=== PATIENT | female | born 1945 | race Caucasian/White ===

== ENCOUNTER → 2016-12-20 | Outpatient (CLI) | payer OTHER, MEDICAID ==
[~2016-12-20] MED LIST: NS 100 ML IV 100 ML IV ONE
[2016-12-20 08:57] LABS: CREATININE 0.96 mg/dL (0.55-1.02)
--- NOTE | 2016-12-20 10:57 | VAS ---
HISTORY: Swollen legs. Study: Bilateral lower extremity ultrasound. Comparison: None. TECHNIQUE: Multiple lares scale and color flow Doppler images of the deep venous system were obtaine d of the right and left lower extremity. FINDINGS: The deep venous system of the right and left lower extremities were evaluated from the level of the common femoral vein through the popliteal vein. Normal color flow and augmentation can be observed. In addition, normal compression is seen throughout the deep venous system. IMPRESSION: 1. Negative for DVT. Reported By:
--- NOTE | 2016-12-20 11:20 | CT ---
HISTORY: TIA, swelling legs, hypertension. Study: CT brain with and without contrast Comparison: None. Technique: Multiple axial images of the brain were obtained from the skull base to the vertex with/without the administration of IV contrast. CTA images were performed of the brain. Dose reduction techniques inc luding Automated Exposure Control (AEC) and adjustment of mA and kV were utilized. Findings: Mild age related cortical atrophy and chronic small vessel ischemic changes. No acute intraparenchym al hemorrhage or mass can be identified. No extra-axial fluid collections are seen. No alteration in the attenuation of the brain parenchyma can be identified to suggest acute or subacute ischemic c hange. The ventricular system is symmetric and nondilated. The visualized paranasal sinuses and mas toid air cells are clear. The osseous structures are intact. No areas of abnormal contrast enhancement. 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 There is a 2 mm outpo uching along the right posterior cerebral artery (series 11, image 13). This is concerning for a sma ll aneurysm. Remaining [place] of [place] is unremarkable. Remaining vascular structures demonstrate n ormal course and caliber without focal stenosis, aneurysmal dilatation, or dissection. No significan t atherosclerotic changes. IMPRESSION: 1. No acute intracranial pathology. However, if clinically concerned for acute ischemia/infarction MRI brain is more sensitive. 2. Question of a 2 mm small aneurysm along the right posterior cerebral artery as above. Recommend M RA brain for further characterization. Reported By:
--- NOTE | 2016-12-20 11:56 | VAS ---
HISTORY: TIA Study: Carotid ultrasound Comparison: None Technique: Multiple lares scale and color flow Doppler images of the right and left carotid arterial system were obtained. The vertebral arterial system was evaluated as well. Findings: The peak systolic velocity of the right ICA is 54 cm/sec. The peak systolic velocity of the left IC A is 61 cm/sec. The ICA/CCA ratio on the right is 1.1. The ICA/CCA ratio on the left is 1.7. Antegra de vertebral flow was noted on the right. The left vertebral artery was not visualized. Correlation with CTA may be helpful. IMPRESSION: 1. No hemodynamically significant carotid stenosis is appreciated. 2. Non visualization of the left vertebral artery. Reported By:
== END | disposition home or self-care (01) | DRG 951 ==
LOC: RAD 08:17
PROVIDERS: ATTEND Internal Medicine Cardiovascular Disease
DX: Z86.73 Personal history of transient ischemic attack (TIA), and cerebral infarction without residual deficits (principal); M79.89 Other specified soft tissue disorders; M48.8X9 Other specified spondylopathies, site unspecified
CPT/HCPCS: 36415; 70470; 82565; 84520; 93880; 93970; A4222

== ENCOUNTER → 2017-07-17 | Outpatient (CLI) | payer OTHER, MEDICAID ==
[~2017-07-17] MED LIST changes: +LEXISCAN IV ONE; -NS 100 ML IV 100 ML IV ONE
== END ==
LOC: RAD 07:53
PROVIDERS: ATTEND Physician Assistant
DX: R07.89 Other chest pain (principal)
CPT/HCPCS: 78452; 93017; A4222; A9502; J2785

== ENCOUNTER → 2017-07-20 | Outpatient (CLI) | payer OTHER, MEDICAID | LOC: RAD 13:25 | PROVIDERS: ATTEND Physician Assistant | DX: R07.89 Other chest pain (principal); R11.0 Nausea; R06.02 Shortness of breath | CPT/HCPCS: 93306 ==

== ENCOUNTER 2019-01-02 13:00 | Observation (INO) ==
--- NOTE | 2019-01-02 13:49 | DR.GENAD ---
HPI Time Seen Time Seen by Provider: 01/02/19 13:49 PCP Primary Care Physician: LEANDRO HPI Comment HPI Comment: PATIENT IE 73YR OLD FEMALE IN ED WITH ELEVATED BP, BRADYCARDIA AND POUNDING OF HEART ON AND OFF FOR 3 DAYS. WORSE TODAY. Complaint/Symptoms Chief Complaint Doctors Comments: ELEVATED BLOOD PRESSURE, DECRASE HEART RATE AND HEART POUNDING TIMES 3 DAYS. Chief Complaint:: PT C/O HER BLOOD PRESSURE BEING UP AND HER HEART RATE HAS BEEN BOUNCING ALL OVER THE PLACE. DROPPING DOWN IN THE 40'S AND BACK UP TO THE 5-'S. PT CALLED BUSINESS PROJECT MANAGER'S OFFICE AND WAS TOLD TO COME THE ER. Nurses notes reviewed Nurses Notes Review: Yes Source History Provided: Patient Mode of Arrival Mode of Arrival: Ambulatory Timing Onset of Chief Complaint: 12/30/18 Came on: Suddenly Duration Duration: Intermittent Duration: Days Severity Severity: Moderate Modifying Factors Worsens:: ACTIVITY Improves:: REST. Associated Signs and Symptoms Associated Signs and Symptoms: WEAKNESS. Other History Other History: CAD AND HYPERTENSION. PMH PMH Past Medical History: No Past Medical History: Coronary Artery Disease and Hypothyroidism Past Medical History Comment: A-FIB Past Surgical History: Yes Surgical History: Cholecystectomy and Hysterectomy Past Surgical History Comment: ADHESIONS REMOVAL, EGD, COLONOSCOPY Family History History of Family Medical Conditions: No Social History Does patient currently use any type of tobacco product: No Have you used tobacco products in the last 12 months: Yes Type of Tobacco Use: Cigarettes Does any household member use tobacco: Yes Alcohol Use: None Do you use any recreational Drugs:: No Lives With: Family Lives Where: Home infectious screening In the last 2 months have you had wt loss of >10#?: NO Have you had fever, night sweats or hemotysis?: No Have you traveled outside the country in the last 6 months?: No Isolation: Standard ROS Review of Systems Constitutional: See HPI, Weakness and Fatigue; negative Fever Eyes: No Symptoms Reported and See HPI; negative Eye Pain, Blurred Vision, D ischarge and Photophobia ENTM: No Symptoms Reported and See HPI; negative Ear Pain, Nose Discharge, Nose Congestion and Throat Pain Respiratoy: See HPI and Short of Breath; negative Productive Cough and Wheezing Cardiovascular: See HPI, Chest Pain and Edema; negative Syncope Gastrointestinal/Abdominal: No Symptoms Reported and See HPI; negative Abdominal Pain, Constipation, Diarrhea and Vomiting Genitourinary: No Symptoms Reported and See HPI; negative Dysuria, Frequency and Hematuria Neurological: No Symptoms Reported, See HPI, Weakness and Dizziness; negative Headache Musculoskeletal: No Symptoms Reported and See HPI; negative Back Pain Integumentary: No Symptoms Reported and See HPI Hematologic/Lymphatic: No Symptoms Reported and See HPI; negative Easy Bruising and Swollen Glands Endocrine: No Symptoms Reported and See HPI; negative Increased Thirst, Increased Urine and Decreased Appetite Psychiatric: No Symptoms Reported and See HPI All Other Systems: Reviewed and Negative PE Vital Signs Vitals: Temperature 98.4 F Pulse Rate [Right Brachial] 76 Pulse Rate [Apical] 60 Pulse Rate 66 Respiratory Rate 20 Blood Pressure [Right Arm] 139/75 Blood Pressure [Left Arm] 117/71 Blood Pressure 180/74 O2 Sat by Pulse Oximetry 96 General Limitations: No Limitations General Appearance: Alert and In No Apparent Distress Head Head Exam: Normal Inspection and Atraumatic Eyes Eye exam: Normal Appearance, PERRL and EOMI; negative Scleral Icterus and Conjunctival Injection ENT ENT Exam: Normal Exam, Normal Oropharynx, Normal External Ear Exam and TM's Normal Bilaterally External Ear Exam: Normal External Inspection; negative Mastoid Tenderness, Pain with Movement and External Tenderness TM/Canal Exam: Bilateral: Normal Nose Exam: Normal Nose Exam; negative Sinus Tenderness, Nasal Deviation and Septal Hematoma Mouth Exam: Normal Inspection; negative Lip Swelling and Tongue Swelling Throat Exam: Normal Inspection; negative Tonsillar Erythema, Tonsillomegaly and Tonsillar Exudate Neck Neck Exam: Normal Inspection and Trachea Midline; negative Tenderness and Lymphadenopathy Chest Chest Inspection: Normal Inspection and Symmetric Chest Wall Rise; negative Tenderness Respiratory Respiratory Exam: Normal Lung Sounds Bilat; negative Accessory Muscle Use, Chest Wall Tenderness and Respiratory Distress Respiratory Exam: Bilateral: Rhonchi and Lower: Rhonchi Cardiovascular Cardiovascular Exam: Regular Rate, Bradycardia and Normal Heart Sounds; negative Systolic Murmur and Diastolic Murmur Abdominal Exam Abdominal Exam: Normal Inspection, Normal Bowel Sounds and Soft; negative Tenderness Extremities Extremities Exam: Normal Inspection and Normal Capillary Refill; negative Tenderness, Edema and Calf Tenderness Back Back Exam: Normal Inspection; negative Tenderness, Paraspinal Tenderness and Vertebral Tenderness Neurologic Neurological Exam: Alert, Oriented X3 and CN II-XII Intact; negative Motor Sensory Deficit Psychiatric Psychiatric Exam: Normal Affect and Normal Mood Skin Skin Exam: Warm, Dry, Intact and Normal Color MDM Differential Diagnosis Differential Diagnosis: A FIN/FLUTTER, NM, PNEUMONIA, ARRHYTHMIA, DEHYDRATION, ELECTRLYTE ABNORMALI COURSE Treatment Treatment: SEE ORDERS. Education/Counseling Education/Counseling: Patient Educated On: Diagnosis ROR Labs Reviewed Laboratory Results Reviewed?: Yes Result Diagrams: 01/04/19 05:17 01/04/19 05:17 Laboratory: WBC 6.0 X10^3/uL (3.6-10.0) 01/04/19 05:17 RBC 4.65 X10^6/uL (3.5-5.4) 01/04/19 05:17 Hgb 13.5 g/dL (12.0-16.0) 01/04/19 05:17 Hct 41.1 % (36.0-47.0) 01/04/19 05:17 MCV 88.3 fL (80.0-100.0) 01/04/19 05:17 MCH 29.1 pg (27.0-34.0) 01/04/19 05:17 MCHC 33.0 g/dL (33.0-35.0) 01/04/19 05:17 RDW 14.5 % (11.6-16.5) 01/04/19 05:17 Plt Count 176 X10^3/uL (150.0-450.0) 01/04/19 05:17 MPV 9.4 fL (7.4-11.0) 01/04/19 05:17 Neut % (Auto) 51.1 % (42.0-75.0) 01/04/19 05:17 Lymph % (Auto) 37.7 % (21.0-51.0) 01/04/19 05:17 Allen % (Auto) 9.1 % (0.0-13.0) 01/04/19 05:17 Eos % (Auto) 1.6 % (0.9-2.9) 01/04/19 05:17 Baso % (Auto) 0.5 % (0.2-1.0) 01/04/19 05:17 Neut # (Auto) 3.1 x10^3/uL (2.2-4.8) 01/04/19 05:17 Lymph # (Auto) 2.3 X10^3/uL (1.3-2.9) 01/04/19 05:17 Allen # (Auto) 0.5 x10^3/uL (0.3-0.8) 01/04/19 05:17 Eos # (Auto) 0.1 x10^3/uL (0.0-0.2) 01/04/19 05:17 Baso # (Auto) 0.0 X10^3/uL (0.0-0.1) 01/04/19 05:17 Absolute Nucleated RBC 0.1 /100WBC 01/04/19 05:17 INR Target Range - 01/03/19 05:03 INR 1.08 (0.8-1.3) 01/03/19 05:03 APTT 31.5 SECONDS (22.9-36.5) 01/03/19 05:03 PTT Comment - 01/03/19 05:03 Sodium 142 mmol/L (136-145) 01/04/19 05:17 Corrected Sodium TNP 01/04/19 05:17 Potassium 4.0 mmol/L (3.5-5.1) 01/04/19 05:17 Chloride 106 mmol/L (98-107) 01/04/19 05:17 Carbon Dioxide 30.3 mmol/L (21-32) 01/04/19 05:17 BUN 13 mg/dL (7-18) 01/04/19 05:17 Creatinine 0.78 mg/dL (0.55-1.02) 01/04/19 05:17 Est GFR (MDRD) Af Amer > 60 (>60) 01/04/19 05:17 Est GFR (MDRD) Non-Af > 60 (>60) 01/04/19 05:17 Glucose 91 mg/dL (65-99) 01/04/19 05:17 Calcium 9.1 mg/dL (8.5-10.1) 01/04/19 05:17 Corrected Calcium 9.7 mg/dL (8.5-10.1) 01/04/19 05:17 Magnesium 2.0 mg/dL (1.7-2.9) 01/03/19 05:03 Total Bilirubin 0.50 mg/dL (0.2-1.0) 01/04/19 05:17 AST 17 Units/L (15-37) 01/04/19 05:17 ALT 26 Units/L (12-78) 01/04/19 05:17 Alkaline Phosphatase 123 Units/L (46-116) H 01/04/19 05:17 Creatine Kinase 77 Units/L (26-192) 01/03/19 05:03 CK-MB (CK-2) < 1.0 ng/mL (0-4.0) 01/03/19 05:03 CK/CKMB % Calc 1.3 % (<4) 01/03/19 05:03 Troponin I < 0.02 ng/mL (0-1.5) 01/03/19 05:03 Total Protein 6.6 g/dL (6.4-8.2) 01/04/19 05:17 Albumin 3.2 g/dL (3.4-5.0) L 01/04/19 05:17 Globulin 3.4 g/dL (2.5-4.5) 01/04/19 05:17 Albumin/Globulin Ratio 0.9 Ratio (1.1-2.1) L 01/04/19 05:17 Triglycerides 65 mg/dL (0-150) 01/03/19 05:03 Cholesterol 186 mg/dL (0-200) 01/03/19 05:03 LDL Cholesterol, Calc 109 mg/dL (0-100) H 01/03/19 05:03 HDL Cholesterol 64 mg/dL (40-60) H 01/03/19 05:03 Cholesterol/HDL Ratio 2.9 (0.0-5.0) 01/03/19 05:03 TSH 3rd Generation 1.161 uIU/mL (0.358-3.74) 01/02/19 14:14 Specimen Type Clean catch urine 01/02/19 16:13 Urine Color Yellow (YELLOW) 01/02/19 16:13 Urine Appearance Clear (CLEAR) 01/02/19 16:13 Urine pH 5.0 (5.0 - 8.0) 01/02/19 16:13 Ur Specific [place] 1.020 (1.000-1.030) 01/02/19 16:13 Urine Protein Negative (NEGATIVE) 01/02/19 16:13 Urine Glucose (UA) Negative (NEGATIVE) 01/02/19 16:13 Urine Ketones Negative (NEGATIVE) 01/02/19 16:13 Urine Occult Blood 1+ (NEGATIVE) 01/02/19 16:13 Urine Nitrite Negative (NEGATIVE) 01/02/19 16:13 Urine Bilirubin Negative (NEGATIVE) 01/02/19 16:13 Urine Urobilinogen Normal (NORMAL) 01/02/19 16:13 Ur Leukocyte Esterase 1+ (NEGATIVE) 01/02/19 16:13 Urine RBC 0-2 /HPF (NONE SEEN) 01/02/19 16:13 Urine WBC 0-2 /HPF (NONE SEEN) 01/02/19 16:13 Ur Squamous Epith Cells Few /HPF (NEGATIVE) 01/02/19 16:13 Urine Bacteria Negative /HPF (NEGATIVE) 01/02/19 16:13 Ur Culture Indicated? No/not indicated 01/02/19 16:13 XRAY XRAY Interpreted by: Radiologist XRAY Findings: REPORT NOTED ABD DISCUSS WITH PATIENT. EKG Rate: 57 Berkley: Normal Rhythm: SB Block: None Hypertrophy: None ST: Normal Opioid Opioid Risk Tool Age (Tanner box if 16-45): No Total: 0 Total Score Risk Category: Low Risk Copyright: [facility] predicting aberrant behaviors Diagnosis Discharge Problem: Hypertension, Near syncope, Arrhythmia Instructions Instructions: Steps to Quit Smoking, [id number] Health Risks of Smoking Smoking Tobacco Information, Adult Near-Syncope, [id number] Hypertension, [id number] Managing Your Hypertension
[2019-01-02 14:22] LABS: BASOPHILS % (AUTO) 0.7 % (0.2-1.0); EOSINOPHILS # (AUTO) 0.1 x10^3/uL (0.0-0.2); EOSINOPHILS % (AUTO) 1.8 % (0.9-2.9); HEMATOCRIT 41.7 % (36.0-47.0); LYMPHOCYTES # (AUTO) 1.5 X10^3/uL (1.3-2.9); LYMPHOCYTES % (AUTO) 24.2 % (21.0-51.0); MEAN CORPUSCULAR HEMOGLOBIN 29.3 pg (27.0-34.0); MEAN CORPUSCULAR HGB CONC 33.6 g/dL (33.0-35.0); MEAN CORPUSCULAR VOLUME 87.4 fL (80.0-100.0); MEAN PLATELET VOLUME 8.5 fL (7.4-11.0); MONOCYTES # (AUTO) 0.5 x10^3/uL (0.3-0.8); MONOCYTES % (AUTO) 8.3 % (0.0-13.0); NEUTROPHILS # (AUTO) 4.1 x10^3/uL (2.2-4.8); PLATELET COUNT 175 X10^3/uL (150.0-450.0); RED BLOOD COUNT 4.77 X10^6/uL (3.5-5.4); RED CELL DISTRIBUTION WIDTH 14.5 % (11.6-16.5); WHITE BLOOD COUNT 6.3 X10^3/uL (3.6-10.0)
[2019-01-02 14:41] LABS: BLOOD UREA NITROGEN 19 mg/dL (7-18); CALCIUM 8.9 mg/dL (8.5-10.1); CHLORIDE 106 mmol/L (98-107); CREATININE 0.99 mg/dL (0.55-1.02); SODIUM 143 mmol/L (136-145); TROPONIN I < 0.02 ng/mL (0-1.5); eGFR NON BLACK RACES 59 (>60)
[2019-01-02 14:46] LABS: ALANINE AMINOTRANSFERASE 21 Units/L (12-78); ALBUMIN 3.3 g/dL (3.4-5.0); ALKALINE PHOSPHATASE 121 Units/L (46-116); ASPARTATE AMINO TRANSFERASE 16 Units/L (15-37); CKMB % 1.2 % (<4); COR CA(FOR HYPOALB) 9.5 mg/dL (8.5-10.1); CREATINE KINASE 83 Units/L (26-192); TOTAL PROTEIN 6.8 g/dL (6.4-8.2)
--- NOTE | 2019-01-02 15:29 | RAD ---
History: Chest pain and shortness of breath Study: Portable AP chest Comparison: None Findings: The lungs are clear and the heart and mediastinum are unremarkable. There is no edema or effusion. No significant bony abnormality is demonstrated. Impression: No evidence for active cardiopulmonary disease Reported By:
[2019-01-02 16:17] LABS: APPEARANCE,URINE CLEAR (CLEAR); BILIRUBIN,URINE NEGATIVE (NEGATIVE); BLOOD/HEMOGLOBIN,URINE 1+ (NEGATIVE); COLOR,URINE YELLOW (YELLOW); GLUCOSE, URINE NEGATIVE (NEGATIVE); KETONES,URINE NEGATIVE (NEGATIVE); LEUKOCYTE ESTERASE ,URINE 1+ (NEGATIVE); NITRITES,URINE NEGATIVE (NEGATIVE); PROTEIN,URINE NEGATIVE (NEGATIVE); UROBILINOGEN,URINE NORMAL (NORMAL)
[2019-01-02 16:22] LABS: BACTERIA,URINE NEGATIVE /HPF (NEGATIVE); RBC,URINE 0-2 /HPF (NONE SEEN); SQUAMOUS EPITHELIAL CELL,UR FEW /HPF (NEGATIVE)
[2019-01-02] MEDS: CELEXA PO SCH (21:00)
[2019-01-02] MEDS: ELIQUIS PO SCH (21:00)
[2019-01-02 23:02] LABS: CKMB % 1.2 % (<4); CREATINE KINASE 84 Units/L (26-192); CREATINE KINASE MB < 1.0 ng/mL (0-4.0); TROPONIN I < 0.02 ng/mL (0-1.5)
[2019-01-03 05:15] LABS: BASOPHILS % (AUTO) 0.4 % (0.2-1.0); EOSINOPHILS # (AUTO) 0.1 x10^3/uL (0.0-0.2); EOSINOPHILS % (AUTO) 1.8 % (0.9-2.9); HEMOGLOBIN 13.3 g/dL (12.0-16.0); LYMPHOCYTES # (AUTO) 1.8 X10^3/uL (1.3-2.9); LYMPHOCYTES % (AUTO) 33.9 % (21.0-51.0); MEAN CORPUSCULAR HEMOGLOBIN 29.2 pg (27.0-34.0); MEAN CORPUSCULAR HGB CONC 33.2 g/dL (33.0-35.0); MEAN CORPUSCULAR VOLUME 87.8 fL (80.0-100.0); MONOCYTES # (AUTO) 0.5 x10^3/uL (0.3-0.8); MONOCYTES % (AUTO) 8.4 % (0.0-13.0); NEUTROPHILS % (AUTO) 55.5 % (42.0-75.0); PLATELET COUNT 150 X10^3/uL (150.0-450.0); RED BLOOD COUNT 4.56 X10^6/uL (3.5-5.4); RED CELL DISTRIBUTION WIDTH 14.6 % (11.6-16.5); WHITE BLOOD COUNT 5.4 X10^3/uL (3.6-10.0)
[2019-01-03 05:35] LABS: ALANINE AMINOTRANSFERASE 20 Units/L (12-78); ALKALINE PHOSPHATASE 111 Units/L (46-116); ASPARTATE AMINO TRANSFERASE 18 Units/L (15-37); BLOOD UREA NITROGEN 16 mg/dL (7-18); CALCIUM 8.8 mg/dL (8.5-10.1); CARBON DIOXIDE 29.6 mmol/L (21-32); CHLORIDE 107 mmol/L (98-107); CHOL/HDL RATIO 2.9 (0.0-5.0); CHOLESTEROL 186 mg/dL (0-200); COR CA(FOR HYPOALB) 9.6 mg/dL (8.5-10.1); CREATININE 0.87 mg/dL (0.55-1.02); HDL CHOLESTEROL 64 mg/dL (40-60); SODIUM 143 mmol/L (136-145); TOTAL PROTEIN 6.2 g/dL (6.4-8.2); TRIGLYCERIDES 65 mg/dL (0-150); eGFR NON BLACK RACES > 60 (>60)
[2019-01-03 06:12] LABS: CKMB % 1.3 % (<4); CREATINE KINASE 77 Units/L (26-192); CREATINE KINASE MB < 1.0 ng/mL (0-4.0); TROPONIN I < 0.02 ng/mL (0-1.5)
[2019-01-03] MEDS: NS 1000 ML 1,000 ML IV SCH ×2 (06:37→20:00)
[2019-01-03 07:57] VITALS: BMI 37.3
[2019-01-03] MEDS: CELEXA PO SCH ×2 (08:39→21:54)
[2019-01-03] MEDS: ELIQUIS PO SCH ×2 (08:40→21:54)
[2019-01-03] MEDS ORDERED: XOPENEX 1.25 MG/3 ML NEBULE NEB PRN (12:00)
--- NOTE | 2019-01-03 12:35 | CT ---
History: Altered mental status Study: CT head without contrast. Sagittal and coronal reformations were provided. Post reduction techniques were utilized. Graft findings: The ventricles and sulci are normal in size and configuration without mass effect. There is no intracranial hemorrhage or mass or edema. There is no subdural collection of fluid. The calvarium is intact. The paranasal sinuses are clear. There is very mild periventricular white matter patchy low attenuation. Impression: No evidence for acute intracranial disease Reported By:
--- NOTE | 2019-01-03 13:10 | CT ---
History: Chest pain and shortness of breath Study: CT of the chest with IV contrast. Sagittal and coronal reformations and axial MIPS were provided. Dose reduction techniques were utilized. Comparison: Findings: The right lobe of the thyroid gland is enlarged up to 2.74 cm transverse width extending inferiorly into the anterior superior mediastinum. There is mild effacement of the trachea. The lungs are clear. There is no edema or effusion or pneumothorax. There is no these tidal or hilar adenopathy. No embolus is suggested. The aorta is unremarkable. The visualized upper abdomen suggest enlargement of the spleen, incompletely visualized. The gallbladder surgically absent. No significant bony abnormality is demonstrated. Impression: 1. Right thyroid goiter deviating trachea toward the left and extending into the anterior superior mediastinum 2. Probable splenomegaly 3. Clear lungs Reported By:
--- NOTE | 2019-01-03 13:32 | CT ---
History: Difficulty swallowing and right neck pain Study: CT of the neck with IV contrast. Sagittal and coronal reformations were provided. Dose reduction techniques were utilized. Findings: The thyroid is enlarged. The right lobe measures at least 6 cm in sagittal length and 2.5 cm transverse diameter and 2.8 cm AP diameter with mixed attenuation and multiple low-attenuation thyroid nodules. The left lobe has low attenuation nodules and measures up to 3.2 cm sagittal length. There is mild deviation of the lower cervical trachea from right to left. Graph no cervical or jugular or submandibular adenopathy is demonstrated. Prevertebral soft tissues and retropharyngeal soft tissues are unremarkable. There are calcified plaques in both carotid bifurcations and internal carotid arteries without significant stenosis demonstrated. Impression: Multinodular goiter, with enlarged right lobe of the thyroid gland Reported By:
[2019-01-04 05:37] LABS: BASOPHILS % (AUTO) 0.5 % (0.2-1.0); EOSINOPHILS # (AUTO) 0.1 x10^3/uL (0.0-0.2); EOSINOPHILS % (AUTO) 1.6 % (0.9-2.9); HEMATOCRIT 41.1 % (36.0-47.0); HEMOGLOBIN 13.5 g/dL (12.0-16.0); LYMPHOCYTES # (AUTO) 2.3 X10^3/uL (1.3-2.9); LYMPHOCYTES % (AUTO) 37.7 % (21.0-51.0); MEAN CORPUSCULAR HEMOGLOBIN 29.1 pg (27.0-34.0); MEAN CORPUSCULAR VOLUME 88.3 fL (80.0-100.0); MEAN PLATELET VOLUME 9.4 fL (7.4-11.0); MONOCYTES # (AUTO) 0.5 x10^3/uL (0.3-0.8); MONOCYTES % (AUTO) 9.1 % (0.0-13.0); NEUTROPHILS # (AUTO) 3.1 x10^3/uL (2.2-4.8); NEUTROPHILS % (AUTO) 51.1 % (42.0-75.0); PLATELET COUNT 176 X10^3/uL (150.0-450.0); RED BLOOD COUNT 4.65 X10^6/uL (3.5-5.4); RED CELL DISTRIBUTION WIDTH 14.5 % (11.6-16.5)
[2019-01-04 05:52] LABS: ALANINE AMINOTRANSFERASE 26 Units/L (12-78); ALBUMIN 3.2 g/dL (3.4-5.0); ALKALINE PHOSPHATASE 123 Units/L (46-116); ASPARTATE AMINO TRANSFERASE 17 Units/L (15-37); BLOOD UREA NITROGEN 13 mg/dL (7-18); CALCIUM 9.1 mg/dL (8.5-10.1); CARBON DIOXIDE 30.3 mmol/L (21-32); CHLORIDE 106 mmol/L (98-107); COR CA(FOR HYPOALB) 9.7 mg/dL (8.5-10.1); CREATININE 0.78 mg/dL (0.55-1.02); SODIUM 142 mmol/L (136-145); TOTAL PROTEIN 6.6 g/dL (6.4-8.2); eGFR NON BLACK RACES > 60 (>60)
[2019-01-04] MEDS: ELIQUIS PO SCH (08:05)
[2019-01-04] MEDS: CELEXA PO SCH (08:05)
[2019-01-04 09:28] VITALS: BP 117/71
--- NOTE | 2019-01-21 08:21 | DR.H&P ---
H&P - History & Physical for Day of: H&P Date: 01/02/19 - Chief Complaint Chief Complaint: increased blood pressure, erratic heart rate, near syncope - History of Present Illness History of Present Illness: IS A 73 YEAR OLD WHITE FEMALE WHO PRESENTED TO THE ER WITH COMPLAINTS OF ELEVATED BLOOD PRESSURE AND ERRATIC HEART RATE X 3 DAYS. SHE REPORTS NEARLY PASSING OUT AT HOME. PATIENT REPORTS THAT SHE WAS INSTRUCTED BY HER CUTTING MACHINE TENDER TO COME TO THE ER. ON ARRIVAL TO THE ER, VITALS WERE 98.5-62-20-97%-180/74. LABS WERE OBTAINED. ABNORMAL LAB VALUES INCLUDE THE FOLLOWING: BUN 19, GLUCOSE 102, ALK PHOS 121, ALBUMIN 3.3. CARDIAC E NZYMES WITHIN NORMAL LIMITS. URINALYSIS UNREMARKABLE. AN EKG WAS OBTAINED AND REVEALED: SINUS RHYTHM WITH HR 57. A CHEST XRAY WAS OBTAINED AND REVEALED: NO EVIDENCE FOR ACTIVE CARDIOPULMONARY DISEASE. SHE WAS ADMITTED TO THE HOSPITAL FOR FURTHER EVALUATION AND TREATMENT OF NEAR SYNCOPY, ARRHYTHMIA, BRADYCARDIA, AND HYPERTENSION. SHE WAS STARTED ON NS AT 30ML/HR AND HOME MEDICATIONS OF ELIQUIS 5MG PO BID AND CELEXA 10MG PO BID WERE RESUMED. WE PLAN TO FOLLOW UP WITH SERIAL CARDIAC ENZYEMS AND EKGS AND AM LABS AND CONTINUE TO MONITOR. - Past Medical History Past Medical History: Coronary Artery Disease, Hypothyroidism - Past Surgical History Surgical History: Cholecystectomy, Hysterectomy - Family History Family Medical History: Hypertension - Social History Does patient currently use any type of tobacco product: No Have you used tobacco products in the last 12 months: Yes Type of Tobacco Use: Cigarettes How many years tobacco product used: 50 Does any household member use tobacco: Yes Alcohol Use: None Drug Use: Prescription Drugs - Medications Home Medications: No Known Drug Allergies Allergy (Verified 01/02/19 13:08) CONTINUE taking the following medications apixaban 5 mg PO BID 01/02/19 [History] citalopram 10 mg PO BID 01/02/19 [History] - Review of Systems Constitutional: Weakness Eyes: No Symptoms Reported ENT: No Symptoms Reported Respiratory: Shortness of Breath Cardiovascular: See HPI, Palpitations, Light Headedness Gastrointestinal: No Symptoms Reported Genitourinary: No Symptoms Reported Musculoskeletal: No Symptoms Reported Skin: No Symptoms Reported Neurological: Weakness - Physical Exam Vital Signs: Temperature 98.4 F Pulse Rate [Right Brachial] 76 Pulse Rate [Apical] 60 Pulse Rate 66 Respiratory Rate 20 Blood Pressure [Right Arm] 139/75 Blood Pressure [Left Arm] 117/71 Blood Pressure 180/74 O2 Sat by Pulse Oximetry 96 Oriented: Normal Eyes: Normal Ear: Normal Nose: Normal Throat: Normal Respiratory: Diminished Throughout Cardiovascular: Bradycardia, Irregular : Normal Auscultation: Bowel Sounds: Normal Palpation: Normal Tenderness: Normal Skin: Normal Musculoskeletal: Normal Psychiatric: Normal Mood Description: Calm Affect: Normal Speech Pattern: Clear - Assessment/Plan (1) Arrhythmia Qualifiers: Arrhythmia type: atrial fibrillation Atrial fibrillation type: paroxysmal Qualified Code(s): I48.0 - Paroxysmal atrial fibrillation Status: Acute Plan: ELIQUIS 5MG PO BID, 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
--- NOTE | 2019-01-21 08:28 | PCM.PROG ---
Progress Note - Progress Note for Day of Date of Exam: 01/03/19 - Subjective Subjective: WAS ADMITTED FOR TREATMENT OF NEAR SYNCOPY, ARRHYTHMIA, BRADYCARDIA, AND HYPERTENSION. TODAY, SHE IS ALERT AND ORIENTED, LYING IN BED ON MORNING ROUNDS. SHE CONTINUES WITH COMPLAINTS OF WEAKNESS AND LIGHTHEADEDNESS. SHE ALSO REPORTS SHORTNESS OF BREATH AND NECK PAIN. ON EXAMINATION, HEART RATE IS IRREGULAR AND NOTED TO BE IN THE 60S. BILATERAL LUNGS ARE NOTED WITH DIMINISHED LUNG SOUNDS. ABDOMEN IS ROUND, SOFT, AND NON-TENDER WITH NORMAL BOWEL SOUNDS NOTED IN ALL QUADRANTS. HER VITALS THIS MORNING ARE: 98.4-64-18-96%-122/80. LABS WERE OBTAINED. ABNORMAL LAB VALUES INCLUDE THE FOLLOWING: TOTAL PROTEIN 6.2, ALBUMIN 3.0, LDL 109, HDL 64. CARDIAC ENZYMES WITHIN NORMAL LIMITS. TODAY, WE PLAN TO OBTAIN A BRAIN CT, ECHOCARDIOGRAM, CHEST CT WITH CONTRAST, AND A SOFT TISSUE NECK CT. WE WILL ADD NEBULIZER TREATMENTS. OTHERWISE, WE WILL CONTINUE WITH CURRENT PLAN OF CARE. WE WILL FOLLOW UP WITH AM LABS AND CONTINUE TO MONITOR. - Past Medical Family Social History Past Med/Fam/Surg Hx: No changes since H&P Allergies: Allergies No Known Drug Allergies Allergy (Verified 01/02/19 13:08) - Review of Systems ROS: No change since H&P - Vital Signs and I&O's Vital Signs: Temperature 98.4 F Pulse Rate [Right Brachial] 76 Pulse Rate [Apical] 60 Pulse Rate 66 Respiratory Rate 20 Blood Pressure [Right Arm] 139/75 Blood Pressure [Left Arm] 117/71 Blood Pressure 180/74 O2 Sat by Pulse Oximetry 96 - Physical Exam Oriented: Normal Eyes: Normal Ear: Normal Nose: Normal Throat: Normal Respiratory: Generalized, Diminished Cardiovascular: Bradycardia, Irregular : Normal Auscultation: Bowel Sounds: Normal Palpation: Normal Tenderness: Normal Skin: Normal Musculoskeletal: Normal Psychiatric: Normal Mood Description: Calm Affect: Normal Speech Pattern: Clear - Laboratory and Diagnostics Result Diagrams: 01/04/19 05:17 01/04/19 05:17 Labs: Laboratory WBC 6.0 X10^3/uL (3.6-10.0) 01/04/19 05:17 RBC 4.65 X10^6/uL (3.5-5.4) 01/04/19 05:17 Hgb 13.5 g/dL (12.0-16.0) 01/04/19 05:17 Hct 41.1 % (36.0-47.0) 01/04/19 05:17 MCV 88.3 fL (80.0-100.0) 01/04/19 05:17 MCH 29.1 pg (27.0-34.0) 01/04/19 05:17 MCHC 33.0 g/dL (33.0-35.0) 01/04/19 05:17 RDW 14.5 % (11.6-16.5) 01/04/19 05:17 Plt Count 176 X10^3/uL (150.0-450.0) 01/04/19 05:17 MPV 9.4 fL (7.4-11.0) 01/04/19 05:17 Neut % (Auto) 51.1 % (42.0-75.0) 01/04/19 05:17 Lymph % (Auto) 37.7 % (21.0-51.0) 01/04/19 05:17 [place] % (Auto) 9.1 % (0.0-13.0) 01/04/19 05:17 Eos % (Auto) 1.6 % (0.9-2.9) 01/04/19 05:17 Baso % (Auto) 0.5 % (0.2-1.0) 01/04/19 05:17 Neut # (Auto) 3.1 x10^3/uL (2.2-4.8) 01/04/19 05:17 Lymph # (Auto) 2.3 X10^3/uL (1.3-2.9) 01/04/19 05:17 [place] # (Auto) 0.5 x10^3/uL (0.3-0.8) 01/04/19 05:17 Eos # (Auto) 0.1 x10^3/uL (0.0-0.2) 01/04/19 05:17 Baso # (Auto) 0.0 X10^3/uL (0.0-0.1) 01/04/19 05:17 Absolute Nucleated RBC 0.1 /100WBC 01/04/19 05:17 INR Target Range - 01/03/19 05:03 INR 1.08 (0.8-1.3) 01/03/19 05:03 APTT 31.5 SECONDS (22.9-36.5) 01/03/19 05:03 PTT Comment - 01/03/19 05:03 Sodium 142 mmol/L (136-145) 01/04/19 05:17 Corrected Sodium TNP 01/04/19 05:17 Potassium 4.0 mmol/L (3.5-5.1) 01/04/19 05:17 Chloride 106 mmol/L (98-107) 01/04/19 05:17 Carbon Dioxide 30.3 mmol/L (21-32) 01/04/19 05:17 BUN 13 mg/dL (7-18) 01/04/19 05:17 Creatinine 0.78 mg/dL (0.55-1.02) 01/04/19 05:17 Est GFR (MDRD) Af Amer > 60 (>60) 01/04/19 05:17 Est GFR (MDRD) Non-Af > 60 (>60) 01/04/19 05:17 Glucose 91 mg/dL (65-99) 01/04/19 05:17 Calcium 9.1 mg/dL (8.5-10.1) 01/04/19 05:17 Corrected Calcium 9.7 mg/dL (8.5-10.1) 01/04/19 05:17 Magnesium 2.0 mg/dL (1.7-2.9) 01/03/19 05:03 Total Bilirubin 0.50 mg/dL (0.2-1.0) 01/04/19 05:17 AST 17 Units/L (15-37) 01/04/19 05:17 ALT 26 Units/L (12-78) 01/04/19 05:17 Alkaline Phosphatase 123 Units/L (46-116) H 01/04/19 05:17 Creatine Kinase 77 Units/L (26-192) 01/03/19 05:03 CK-MB (CK-2) < 1.0 ng/mL (0-4.0) 01/03/19 05:03 CK/CKMB % Calc 1.3 % (<4) 01/03/19 05:03 Troponin I < 0.02 ng/mL (0-1.5) 01/03/19 05:03 Total Protein 6.6 g/dL (6.4-8.2) 01/04/19 05:17 Albumin 3.2 g/dL (3.4-5.0) L 01/04/19 05:17 Globulin 3.4 g/dL (2.5-4.5) 01/04/19 05:17 Albumin/Globulin Ratio 0.9 Ratio (1.1-2.1) L 01/04/19 05:17 Triglycerides 65 mg/dL (0-150) 01/03/19 05:03 Cholesterol 186 mg/dL (0-200) 01/03/19 05:03 LDL Cholesterol, Calc 109 mg/dL (0-100) H 01/03/19 05:03 HDL Cholesterol 64 mg/dL (40-60) H 01/03/19 05:03 Cholesterol/HDL Ratio 2.9 (0.0-5.0) 01/03/19 05:03 TSH 3rd Generation 1.161 uIU/mL (0.358-3.74) 01/02/19 14:14 Specimen Type Clean catch urine 01/02/19 16:13 Urine Color Yellow (YELLOW) 01/02/19 16:13 Urine Appearance Clear (CLEAR) 01/02/19 16:13 Urine pH 5.0 (5.0 - 8.0) 01/02/19 16:13 Ur Specific [place] 1.020 (1.000-1.030) 01/02/19 16:13 Urine Protein Negative (NEGATIVE) 01/02/19 16:13 Urine Glucose (UA) Negative (NEGATIVE) 01/02/19 16:13 Urine Ketones Negative (NEGATIVE) 01/02/19 16:13 Urine Occult Blood 1+ (NEGATIVE) 01/02/19 16:13 Urine Nitrite Negative (NEGATIVE) 01/02/19 16:13 Urine Bilirubin Negative (NEGATIVE) 01/02/19 16:13 Urine Urobilinogen Normal (NORMAL) 01/02/19 16:13 Ur Leukocyte Esterase 1+ (NEGATIVE) 01/02/19 16:13 Urine RBC 0-2 /HPF (NONE SEEN) 01/02/19 16:13 Urine WBC 0-2 /HPF (NONE SEEN) 01/02/19 16:13 Ur Squamous Epith Cells Few /HPF (NEGATIVE) 01/02/19 16:13 Urine Bacteria Negative /HPF (NEGATIVE) 01/02/19 16:13 Ur Culture Indicated? 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
== END 2019-01-04 11:50 | disposition home or self-care (01) ==
LOC: ER 13:07 → MED/SURG 13:07
PROVIDERS: ADMIT Internal Medicine; ATTEND Internal Medicine
DX: R55 Syncope and collapse; Z79.01 Long term (current) use of anticoagulants; I48.0 Paroxysmal atrial fibrillation; E04.2 Nontoxic multinodular goiter; E03.8 Other specified hypothyroidism; I10 Essential (primary) hypertension; I25.10 Atherosclerotic heart disease of native coronary artery without angina pectoris; R13.11 Dysphagia, oral phase; R42 Dizziness and giddiness; J44.9 Chronic obstructive pulmonary disease, unspecified
CPT/HCPCS: 36415; 70450; 70491; 71010; 71045; 71260; 80053; 80061; 81001; 82550; 82553; 83735; 84443; 84484; 85025; 85610; 85730; 92526; 92610; 93005; 93306; 94760; 96365; 96367; 99284; A4222; G0378; J7030

== ENCOUNTER 2020-08-15 01:06 | Inpatient (IN) ==
[2020-08-15] MEDS ORDERED: SOLU-Medrol 125 MG VIAL IVP ONE (01:21)
[2020-08-15] MEDS ORDERED: LEVAQUIN PREMIX IV 750 MG 750 MG/150 ML BAG IV ONE ×2 (01:21→01:26)
[2020-08-15] MEDS ORDERED: DUONEB 0.5 MG/3 MG (3 mL) NEB ONE ×6 (01:21→06:50)
[2020-08-15] MEDS ORDERED: SOLU-Medrol 125 MG VIAL ONE (01:26)
[2020-08-15] MEDS ORDERED: NS 100 ML IV 100 ML IV ONE (01:27)
[2020-08-15 02:01] LABS: BASOPHILS % (AUTO) 0.3 % (0.2-1.0); EOSINOPHILS % (AUTO) 0.1 % (0.9-2.9); HEMATOCRIT 39.9 % (36.0-47.0); LYMPHOCYTES # (AUTO) 1.4 X10^3/uL (1.3-2.9); LYMPHOCYTES % (AUTO) 10.4 % (21.0-51.0); MEAN CORPUSCULAR HEMOGLOBIN 29.3 pg (27.0-34.0); MEAN CORPUSCULAR HGB CONC 32.5 g/dL (33.0-35.0); MEAN PLATELET VOLUME 9.4 fL (7.4-11.0); MONOCYTES # (AUTO) 0.8 x10^3/uL (0.3-0.8); MONOCYTES % (AUTO) 6.2 % (0.0-13.0); PLATELET COUNT 232 X10^3/uL (150.0-450.0); RED BLOOD COUNT 4.44 X10^6/uL (3.5-5.4); RED CELL DISTRIBUTION WIDTH 14.4 % (11.6-16.5); WHITE BLOOD COUNT 13.3 X10^3/uL (3.6-10.0)
[2020-08-15 02:41] LABS: ALANINE AMINOTRANSFERASE 25 Units/L (12-78); ALBUMIN 3.2 g/dL (3.4-5.0); ALKALINE PHOSPHATASE 105 Units/L (46-116); ASPARTATE AMINO TRANSFERASE 20 Units/L (15-37); BLOOD UREA NITROGEN 18 mg/dL (7-18); CARBON DIOXIDE 32.5 mmol/L (21-32); CHLORIDE 102 mmol/L (98-107); CKMB % 0.9 % (<4); COR CA(FOR HYPOALB) 6.3 mg/dL (8.5-10.1); COR NA(FOR HYPERGLY) 143 mmol/L (136-145); CREATINE KINASE 799 Units/L (26-192); CREATININE 1.01 mg/dL (0.55-1.02); MAGNESIUM 1.4 mg/dL (1.7-2.9); SODIUM 142 mmol/L (136-145); TOTAL PROTEIN 6.6 g/dL (6.4-8.2); TROPONIN I < 0.02 ng/mL (0-1.5); eGFR NON BLACK RACES 57 (>60)
[2020-08-15 02:43] LABS: CALCIUM 5.7 mg/dL (8.5-10.1); CREATINE KINASE MB 6.8 ng/mL (0-4.0)
[2020-08-15 02:56] LABS: ABG ALLEN TEST POS; ABG BASE EXCESS 3.9 mmol/L (-2.0-2.0); ABG HCO3 30.5 mmol/L (22-26)
--- NOTE | 2020-08-15 05:06 | RAD ---
HISTORYSOBSTUDYCHEST, 1 [id number] trachea is midline. The cardiac silhouette is mildly enlarged.. The lungs are clear without focal infiltrate or effusion. The bony thorax is unremarkable.IMPRESSIONMild cardiomegaly.No active cardiopulmonary diseaseElectronically signed by: Gregory Gomes (Aug 15, 2020 05:03:51)
--- NOTE | 2020-08-15 05:07 | RAD ---
HISTORYShort of breath, wheezing relevant Clinical InformationSTUDYSOFT TISSUE NECKCOMPARISONFINDINGSThe prevertebral soft tissues are unremarkable in their appearance. No evidence for foreign body can be identified. The hypopharynx and distal airway appear unremarkable. The bony cervical spine is grossly unremarkable.IMPRESSIONNegative examElectronically signed by: Gregory Gomes (Aug 15, 2020 05:05:16)
--- NOTE | 2020-08-15 05:34 | DR.SOBA ---
HPI Time Seen Time Seen by Provider: 08/15/20 01:19 HPI Comment HPI Comment: Patient presents with complaint of shortness of breath. Has h/o COPD and feels that this is what is going on. 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 Family History Family Medical History: Cancer, [place], Sudden Cardiac and Hypertension Social History Do you use any recreational Drugs:: No ROS Review of Systems Constitutional: See HPI, Malaise and Fatigue Respiratoy: Dry Cough, Short of Breath and Wheezing All Other Systems: Reviewed and Negative PE Vital Signs Vitals: Temperature 98.0 F Pulse Rate [Right Radial] 79 Pulse Rate 89 Respiratory Rate 36 Blood Pressure [Right Arm] 175/72 Blood Pressure 146/64 O2 Sat by Pulse Oximetry 97 General Limitations: No Limitations General Appearance: Alert and In Distress Head Head Exam: Normal Inspection and Normocephalic Eyes Eye exam: Normal Appearance and EOMI ENT ENT Exam: Normal Exam Neck Neck Exam: Normal Inspection and Trachea Midline Chest Chest Inspection: Normal Inspection and Symmetric Chest Wall Rise Respiratory Respiratory Exam: Bilateral: Wheezing and Bilateral: Rhonchi and Right: Decreased Breath Sounds Cardiovascular Cardiovascular Exam: Regular Rate, Normal Rhythm and Normal Heart Sounds Abdominal Exam Abdominal Exam: Normal Inspection, Normal Bowel Sounds and Soft Neurologic Neurological Exam: Alert and Oriented X3 Psychiatric Psychiatric Exam: Normal Affect and Normal Mood Skin Skin Exam: Warm, Dry and Intact COURSE Reevaluation 1st: Worsened (patient desaturates in the 80s when she gets up to walk to bathroom) Consultation Consultation Comments: Spoke with Dr. Grover who accepts patient for admission [facility]OR Labs Reviewed Laboratory Results Reviewed?: Yes Result Diagrams: 08/15/20 01:43 08/15/20 01:43 Laboratory: WBC 13.3 X10^3/uL (3.6-10.0) H 08/15/20 01:43 RBC 4.44 X10^6/uL (3.5-5.4) 08/15/20 01:43 Hgb 13.0 g/dL (12.0-16.0) 08/15/20 01:43 Hct 39.9 % (36.0-47.0) 08/15/20 01:43 MCV 90.0 fL (80.0-100.0) 08/15/20 01:43 MCH 29.3 pg (27.0-34.0) 08/15/20 01:43 MCHC 32.5 g/dL (33.0-35.0) L 08/15/20 01:43 RDW 14.4 % (11.6-16.5) 08/15/20 01:43 Plt Count 232 X10^3/uL (150.0-450.0) 08/15/20 01:43 MPV 9.4 fL (7.4-11.0) 08/15/20 01:43 Neut % (Auto) 83.0 % (42.0-75.0) H 08/15/20 01:43 Lymph % (Auto) 10.4 % (21.0-51.0) L 08/15/20 01:43 [place] % (Auto) 6.2 % (0.0-13.0) 08/15/20 01:43 Eos % (Auto) 0.1 % (0.9-2.9) L 08/15/20 01:43 Baso % (Auto) 0.3 % (0.2-1.0) 08/15/20 01:43 Neut # (Auto) 11.0 x10^3/uL (2.2-4.8) H 08/15/20 01:43 Lymph # (Auto) 1.4 X10^3/uL (1.3-2.9) 08/15/20 01:43 [place] # (Auto) 0.8 x10^3/uL (0.3-0.8) 08/15/20 01:43 Eos # (Auto) 0.0 x10^3/uL (0.0-0.2) 08/15/20 01:43 Baso # (Auto) 0.0 X10^3/uL (0.0-0.1) 08/15/20 01:43 Absolute Nucleated RBC 0.1 /100WBC 08/15/20 01:43 Sample Site Rr 08/15/20 02:37 ABG pH 7.360 (7.35-7.45) 08/15/20 02:37 ABG pCO2 54.0 mmHg (35.0-45.0) H* 08/15/20 02:37 ABG pO2 80.0 mmHg (80.0-100.0) 08/15/20 02:37 ABG HCO3 30.5 mmol/L (22-26) H* 08/15/20 02:37 ABG O2 Saturation 95.0 % (90-100) 08/15/20 02:37 ABG Base Excess 3.9 mmol/L (-2.0-2.0) H 08/15/20 02:37 Michael Test Pos 08/15/20 02:37 A-a Gradient 52.0 mmHg 08/15/20 02:37 FiO2 28 08/15/20 02:37 Blood Gas Comments Elias well sw 08/15/20 02:37 Sodium 142 mmol/L (136-145) 08/15/20 01:43 Corrected Sodium 143 mmol/L (136-145) 08/15/20 01:43 Potassium 4.2 mmol/L (3.5-5.1) 08/15/20 01:43 Chloride 102 mmol/L (98-107) 08/15/20 01:43 Carbon Dioxide 32.5 mmol/L (21-32) H 08/15/20 01:43 BUN 18 mg/dL (7-18) 08/15/20 01:43 Creatinine 1.01 mg/dL (0.55-1.02) 08/15/20 01:43 Est GFR (MDRD) Af Amer > 60 (>60) 08/15/20 01:43 Est GFR (MDRD) Non-Af 57 (>60) L 08/15/20 01:43 Glucose 132 mg/dL (65-99) H 08/15/20 01:43 Calcium 5.7 mg/dL (8.5-10.1) L* 08/15/20 01:43 Corrected Calcium 6.3 mg/dL (8.5-10.1) L 08/15/20 01:43 Magnesium 1.4 mg/dL (1.7-2.9) L 08/15/20 01:43 Total Bilirubin 0.70 mg/dL (0.2-1.0) 08/15/20 01:43 AST 20 Units/L (15-37) 08/15/20 01:43 ALT 25 Units/L (12-78) 08/15/20 01:43 Alkaline Phosphatase 105 Units/L (46-116) 08/15/20 01:43 Creatine Kinase 799 Units/L (26-192) H 08/15/20 01:43 CK-MB (CK-2) 6.8 ng/mL (0-4.0) H* 08/15/20 01:43 CK/CKMB % Calc 0.9 % (<4) 08/15/20 01:43 Troponin I < 0.02 ng/mL (0-1.5) 08/15/20 01:43 B-Natriuretic Peptide 103 pg/mL (0-79) H 08/15/20 01:43 Total Protein 6.6 g/dL (6.4-8.2) 08/15/20 01:43 Albumin 3.2 g/dL (3.4-5.0) L 08/15/20 01:43 Globulin 3.4 g/dL (2.5-4.5) 08/15/20 01:43 Albumin/Globulin Ratio 0.9 Ratio (1.1-2.1) L 08/15/20 01:43 SARS-CoV-2 (PCR) Negative (NEGATIVE) 08/15/20 02:30 Influenza Type A (PCR) Negative (NEGATIVE) 08/15/20 02:30 Influenza Type B (PCR) Negative (NEGATIVE) 08/15/20 02:30 RSV (PCR) Negative (NEGATIVE) 08/15/20 02:30 XRAY X-ray Results: HISTORY SOB STUDY CHEST, 1 VIEW COMPARISON 08/11/2020 FINDINGS The trachea is midline. The cardiac silhouette is mildly enlarged.. The lungs are clear without focal infiltrate or effusion. The bony thorax is unremarkable. IMPRESSION Mild cardiomegaly. No active cardiopulmonary disease Electronically signed by: Gregory Gomes (Aug 15, 2020 05:03:51) HISTORY Short of breath, wheezing relevant Clinical Information STUDY SOFT TISSUE NECK COMPARISON FINDINGS The prevertebral soft tissues are unremarkable in their appearance. No evidence for foreign body can be identified. The hypopharynx and distal airway appear unremarkable. The bony cervical spine is grossly unremarkable. IMPRESSION Negative exam Electronically signed by: Gregory Gomes (Aug 15, 2020 05:05:16) Opioid Opioid Risk Tool Age (Tanner box if 16-45): No History of Preadolescent Sexual Abuse: No Psychological Disease: Depression Total: 0 Total Score Risk Category: Low Risk Copyright: Palomo LR predicting aberrant behaviors Diagnosis Discharge Problem: Chronic obstructive pulmonary disease with acute exacerbation
[2020-08-15] MEDS: PULMICORT NEB TX 0.5 MG NEB SCH ×2 (08:30→20:05)
[2020-08-15] MEDS ORDERED: PULMICORT NEB TX 0.5 MG NEB ONE ×2 (08:31→19:38)
[2020-08-15] MEDS ORDERED: DUONEB 0.5 MG/3 MG (3 mL) NEB SCH (09:00)
[2020-08-15] MEDS ORDERED: LEVAQUIN PREMIX IV 750 MG 750 MG/150 ML BAG IV SCH (09:00)
[2020-08-15] MEDS ORDERED: KLONOPIN TAB 0.5 MG PO ONE (09:58)
[2020-08-15] MEDS: MAGNESIUM SULFATE 1 GRAM/100 mL PREMIX 1 GM/100 ML BAG IV PRN ×3 (10:30→13:11)
[2020-08-15] MEDS: SOLU-Medrol 125 MG VIAL IVP SCH ×2 (14:01→22:21)
[2020-08-15 15:25] LABS: BILIRUBIN,URINE NEGATIVE (NEGATIVE); BLOOD/HEMOGLOBIN,URINE 5+ (NEGATIVE); GLUCOSE, URINE NEGATIVE (NEGATIVE); KETONES,URINE NEGATIVE (NEGATIVE); LEUKOCYTE ESTERASE ,URINE 1+ (NEGATIVE); NITRITES,URINE POSITIVE (NEGATIVE); PROTEIN,URINE 3+ (NEGATIVE); UROBILINOGEN,URINE NORMAL (NORMAL)
[2020-08-15] MEDS: ATIVAN TAB 1 MG PO PRN (15:27)
[2020-08-15 15:39] LABS: APPEARANCE,URINE HAZY (CLEAR); COLOR,URINE DARK YELLOW (YELLOW)
[2020-08-15 15:40] LABS: BACTERIA,URINE 2+ /HPF (NEGATIVE); RBC,URINE TNTC /HPF (0-3); SQUAMOUS EPITHELIAL CELL,UR FEW /HPF (NEGATIVE); YEAST,URINE MODERATE /HPF (NEGATIVE)
[2020-08-15] MEDS: XOPENEX 1.25 MG/3 ML NEBULE NEB SCH (17:05)
[2020-08-15] MEDS ORDERED: MORPHINE SULFATE INJ 2 MG INJ IVP PRN (17:16)
[2020-08-15] MEDS ORDERED: ULTRAM PO PRN (17:38)
[2020-08-15 18:53] LABS: ABG BASE EXCESS 1.1 mmol/L (-2.0-2.0)
[2020-08-15 18:54] LABS: ABG HCO3 30.7 mmol/L (22-26)
--- NOTE | 2020-08-15 19:24 | DR.H&P ---
H&P - History & Physical for Day of: H&P Date: 08/15/20 - Chief Complaint Chief Complaint: SOB, FATIGUE - History of Present Illness History of Present Illness: IS A 75 YEAR OLD PATIENT OF OURS. SHE PRESENTED TO THE ER THIS MORNING WITH REPORTS OF SHORTNESS OF BREATH AND FATIGUE. SHE REPORTS THAT SYMPTOMS STARTED ONE DAY PRIOR AND HAS PROGRESSIVELY GOTTEN WORSE. SHE HAS A PMH OF COPD AND REPORTS THAT SHE FEELS LIKE SHE IS HAVING AN EXACERBATION. SHORTNESS OF BREATH IS WORSE ON EXERTION. SHE DENIES CHEST PAIN OR FEVER. SHE DOES ADMIT TO A NON-PRODUCTIVE COUGH. OTHER PMH INCLUDES ANXIETY, ASTHMA, HTN, CHOLECYSTECTOMY, AND HYSTERECTOMY. EXAMINATION REVEALED SCATTERED WHEEZING THROUGHOUT. HEART REGULAR IN RATE AND RHYTHM. ON ARRIVAL TO THE ER, VITALS WERE 98.6-86-20-95%-168/82. LABS WERE OBTAINED. ABNORMAL LAB VALUES INCLUDE THE FOLLOWING: WBC 13.3, CARBON DIOXIDE 32.5, GLUCOSE 132, CALCIUM 5.7, MAGNESIUM 1.4, CREATINE KINASE 799, CK-MB 6.8, BNP 103, ALBUMIN 3.2. AN ABG WAS OBTAINED AND REVEALED: PH 7.360, PC02 54, P02 80, HC03 30.5, 02 SAT 95, BASE EXCESS 3.9, FI02 28.0. URINALYSIS REVEALED: WBC 5-10, RBC TNTC, BACTERIA 2+, YEAST MODERATE, LEUKOCYTES 1+, OCCULT BLOOD 5+, PROTEIN 3+. COVID, INFLUENZA, AND RSV NEGATIVE. BLOOD AND URINE CULTURES WERE SET UP. A CHEST XRAY WAS OBTAINED AND REVEALED: Mild cardiomegaly. No active cardiopulmonary disease. EKG REVEALED: SINUS RHYTHM WITH HR 82. A SOFT TISSUE NECK XRAY WAS OBTAINED AND REVEALED: The prevertebral soft tissues are unremarkable in their appearance. No evidence for foreign body can be identified. The hypopharynx and distal airway appear unremarkable. The bony cervical spine is grossly unremarkable. IN THE ER, SHE WAS GIVEN A DUONEB X 3, LEVAQUIN 750MG IV X 1 DOSE, SOLU-MEDROL 125MG IV X 1 DOSE. SHE WAS ADMITTED TO THE HOSPITAL FOR FURTHER EVALUATION AND TREATMENT OF ACUTE COPD EXACERBATION AND URINARY TRACT INFECTION. SHE WAS STARTED ON NORMAL SALINE AT 50 ML/HR, PULMICORT NEBS BID, XOPENEX NEB [place] Q6H, LEVAQUIN 750MG IV DAILY, MORPHINE 1-2MG IV Q4H PRN, SOLU-MEDROL 80MG IV Q8H, ELIQUIS 5MG PO BID, CELEXA 20MG PO DAILY, NORCO 7.5/325MG PO Q6H PRN, SYNTHROID 150MCG PO DAILY, ATIVAN 1MG PO TID PRN, LOPRESSOR 25MG PO DAILY, ULTRAM 50MG PO Q6H PRN, AND THE MAGNESIUM PROTOCOL. OTHERWISE, WE PLAN TO FOLLOW UP WITH AM LABS, CHEST XRAY, AND CONTINUE TO MONITOR. TIME SPENT ON CLINICAL ASSESSMENT, REVIEWING LABS AND IMAGING, DECISION MAKING, AND DOCUMENTATION WAS GREATER THAN 75 MINUTES. 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, Other - Family History Family Medical History: Cancer, [place], Sudden Cardiac , Hypertension - Social History Does patient currently use any type of tobacco product: Yes Have you used tobacco products in the last 12 months: Yes Type of Tobacco Use: Cigarettes Does any household member use tobacco: Yes Alcohol Use: Occasionally Drug Use: None - Medications Home Medications: No Known Drug Allergies Allergy (Verified 12/11/19 12:58) CONTINUE taking the following medications esomeprazole magnesium 40 mg PO BID 08/15/20 [History] hydrocodone-acetaminophen 1 tab PO Q6H PRN 08/15/20 [History] levofloxacin 750 mg PO DAILY 08/15/20 [History] levothyroxine [Euthyrox] 150 mcg PO DAILY 08/15/20 [History] metoprolol tartrate 25 mg PO DAILY 08/15/20 [History] prednisone 20 mg PO BID 08/15/20 [History] tramadol 50 mg PO QID PRN 08/15/20 [History] umeclidinium-vilanterol [Anoro Ellipta] 1 inh INHALATION DAILY 08/15/20 [History] - Review of Systems Constitutional: Weakness, Malaise Eyes: No Symptoms Reported ENT: No Symptoms Reported Respiratory: See HPI, Cough, Shortness of Breath, SOB with Excertion, Wheezing. denies: Sputum Cardiovascular: No Symptoms Reported Gastrointestinal: No Symptoms Reported Genitourinary: No Symptoms Reported Musculoskeletal: No Symptoms Reported Skin: No Symptoms Reported Neurological: Weakness - Physical Exam Vital Signs: Temperature 97.6 F Pulse Rate [Right Radial] 99 Pulse Rate 110 Respiratory Rate 27 Blood Pressure [Right Arm] 176/97 Blood Pressure 146/64 O2 Sat by Pulse Oximetry 90 Oriented: Normal Eyes: Normal Ear: Normal Nose: Normal Throat: Normal Respiratory: Wheezes Throughout Cardiovascular: Normal : Normal Auscultation: Bowel Sounds: Normal Palpation: Normal Tenderness: Normal Skin: Normal Musculoskeletal: Normal Psychiatric: Normal Mood Description: Calm Affect: Normal Speech Pattern: Clear - Assessment/Plan (1) Chronic obstructive pulmonary disease with acute exacerbation Status: Acute Plan: ADMIT, SUPPLEMENTAL OXYGEN, NORMAL SALINE AT 50 ML/HR, PULMICORT NEBS BID, XOPENEX NEB [place] Q6H, LEVAQUIN 750MG IV DAILY, MORPHINE 1-2MG IV Q4H PRN, SOLU- MEDROL 80MG IV Q8H, ELIQUIS 5MG PO BID, CELEXA 20MG PO DAILY, [place] 7.5/325MG PO Q6H PRN, SYNTHROID 150MCG PO DAILY, ATIVAN 1MG PO TID PRN, LOPRESSOR 25MG PO DAILY, ULTRAM 50MG PO Q6H PRN, AND THE MAGNESIUM PROTOCOL. - Review H&P Reviewed: Yes Patient was examined?: Yes - Allergies Allergies/Adverse Reactions: Allergies Allergy/AdvReac Type Severity Reaction Status Date / Time No Known Drug Allergies Allergy Verified 12/11/19 12:58
[2020-08-15] MEDS: NS 1000 ML 1,000 ML IV SCH (20:43)
[2020-08-15] MEDS: DIFLUCAN 200 MG IV PREMIX* 200 MG/100 ML BAG IV SCH (20:43)
[2020-08-15 20:46] LABS: TROPONIN I < 0.02 ng/mL (0-1.5)
[2020-08-15 20:48] LABS: CKMB % 1.1 % (<4); CREATINE KINASE 1692 Units/L (26-192)
[2020-08-15 21:43] LABS: ABG ALLEN TEST POS; ABG BASE EXCESS 3.8 mmol/L (-2.0-2.0); ABG HCO3 32.2 mmol/L (22-26)
[2020-08-16] MEDS: XOPENEX 1.25 MG/3 ML NEBULE NEB SCH ×5 (00:03→23:55)
[2020-08-16] MEDS: ELIQUIS PO SCH ×3 (00:08→20:40)
[2020-08-16 00:29] LABS: TROPONIN I < 0.02 ng/mL (0-1.5)
[2020-08-16 00:30] LABS: CREATINE KINASE 1695 Units/L (26-192)
[2020-08-16 00:31] LABS: CREATINE KINASE MB 17.3 ng/mL (0-4.0)
[2020-08-16 03:29] LABS: BASOPHILS % (AUTO) 0.3 % (0.2-1.0); HEMATOCRIT 37.6 % (36.0-47.0); HEMOGLOBIN 11.9 g/dL (12.0-16.0); LYMPHOCYTES # (AUTO) 0.8 X10^3/uL (1.3-2.9); LYMPHOCYTES % (AUTO) 6.4 % (21.0-51.0); MEAN CORPUSCULAR HEMOGLOBIN 28.5 pg (27.0-34.0); MEAN CORPUSCULAR HGB CONC 31.7 g/dL (33.0-35.0); MEAN CORPUSCULAR VOLUME 90.1 fL (80.0-100.0); MEAN PLATELET VOLUME 9.1 fL (7.4-11.0); MONOCYTES # (AUTO) 0.6 x10^3/uL (0.3-0.8); MONOCYTES % (AUTO) 4.9 % (0.0-13.0); NEUTROPHILS # (AUTO) 11.5 x10^3/uL (2.2-4.8); NEUTROPHILS % (AUTO) 88.4 % (42.0-75.0); PLATELET COUNT 238 X10^3/uL (150.0-450.0); RED BLOOD COUNT 4.17 X10^6/uL (3.5-5.4); RED CELL DISTRIBUTION WIDTH 14.6 % (11.6-16.5)
[2020-08-16 04:11] LABS: ALANINE AMINOTRANSFERASE 31 Units/L (12-78); ALBUMIN 3.3 g/dL (3.4-5.0); ALKALINE PHOSPHATASE 96 Units/L (46-116); ASPARTATE AMINO TRANSFERASE 29 Units/L (15-37); BLOOD UREA NITROGEN 26 mg/dL (7-18); CARBON DIOXIDE 33.4 mmol/L (21-32); CHLORIDE 99 mmol/L (98-107); COR CA(FOR HYPOALB) 6.4 mg/dL (8.5-10.1); COR NA(FOR HYPERGLY) 141 mmol/L (136-145); CREATININE 1.19 mg/dL (0.55-1.02); MAGNESIUM 2.7 mg/dL (1.7-2.9); SODIUM 139 mmol/L (136-145); TOTAL PROTEIN 6.4 g/dL (6.4-8.2); TROPONIN I < 0.02 ng/mL (0-1.5); eGFR NON BLACK RACES 47 (>60)
[2020-08-16 04:13] LABS: CALCIUM 5.8 mg/dL (8.5-10.1); CKMB % 0.9 % (<4); CREATINE KINASE 1590 Units/L (26-192); CREATINE KINASE MB 13.8 ng/mL (0-4.0)
[2020-08-16 04:57] LABS: ABG BASE EXCESS 6.1 mmol/L (-2.0-2.0)
[2020-08-16 04:58] LABS: ABG ALLEN TEST POS
[2020-08-16] MEDS: SOLU-Medrol 125 MG VIAL IVP SCH ×3 (05:16→21:19)
[2020-08-16] MEDS: SYNTHROID 150 mcg TAB PO SCH (06:11)
--- NOTE | 2020-08-16 07:00 | RAD ---
HISTORYSOBSTUDYAP chestCOMPARISONMarch 2020FINDINGSHeart size remains upper-normal. The left lung is clear. There is increasing discoid atelectasis in the right lower lobe. Remainder of the right lung is clear. There is no evidence for pneumothorax or pulmonary edema or pleural fluid.IMPRESSIONDeveloping subsegmental atelectasis right lower lung. No change otherwise.Electronically signed by: DARLENE CROWDER (Aug 16, 2020 06:57:38)
[2020-08-16] MEDS: DIFLUCAN 200 MG IV PREMIX* 200 MG/100 ML BAG IV SCH (08:45)
[2020-08-16] MEDS: PULMICORT NEB TX 0.5 MG NEB SCH ×2 (09:10→20:48)
[2020-08-16 09:26] VITALS: BMI 52.3
[2020-08-16] MEDS: LOPRESSOR TAB 25 MG PO SCH (10:10)
[2020-08-16] MEDS: LEVAQUIN PREMIX IV 750 MG 750 MG/150 ML BAG IV SCH (10:10)
[2020-08-16] MEDS: CELEXA PO SCH (10:10)
[2020-08-16] MEDS: NS 1000 ML 1,000 ML IV SCH (11:32)
[2020-08-16] MEDS: ATIVAN TAB 1 MG PO PRN ×2 (11:48→20:40)
[2020-08-16] MEDS ORDERED: TUSSIONEX PENNKINETIC SUSP PO PRN (20:47)
[2020-08-16] MEDS ORDERED: ROBITUSSIN DM PO PRN (20:47)
--- NOTE | 2020-08-16 22:14 | PCM.PROG ---
Progress Note - Progress Note for Day of Date of Exam: 08/16/20 - Subjective Subjective: WAS ADMITTED FOR TREATMENT OF COPD EXACERBATION, RESPIRATORY DISTRESS, HYPOXIA, AND A URINARY TRACT INFECTION. TODAY, SHE IS LYING IN BED WITH EYES CLOSED ON MORNING ROUNDS. SHE AWAKENS AND RESPONDS APPROPRIATELY TO VERBAL STIMULI. SHE IS CURRENTLY UTILIZING THE BIPAP. HER SATURATIONS APPARENTLY DROPPED TO THE 70s WHILE ON 4 LITERS. SHE BECAME VERY ANXIOUS AND DID NOT COOPERATE WITH DEEP BREATHING EXERCISES, THEREFORE, SHE WAS PLACED ON THE BIPAP. TODAY, SHE CONTINUES WITH COMPLAINTS OF SHORTNESS OF BREATH AND WEAKNESS. ON EXAMINATION, HEART IS REGULAR IN RATE AND RHYTHM. BILATERAL LUNGS ARE NOTED WITH SCATTERED WHEEZING THROUGHOUT. ABDOMEN IS ROUND, SOFT, AND NON-TENDER WITH NORMAL BOWEL SOUNDS NOTED IN ALL QUADRANTS. HER VITALS THIS MORNING ARE: 97.8-97-28-96%-105/67. LABS WERE OBTAINED. ABNORMAL LAB VALUES INCLUDE THE FOLLOWING: WBC 13.0, HGB 11.9, CARBON DIOXIDE 33.4, BUN 26, CREATININE 1.19, GLUCOSE 165, CALCIUM 5.8, CREATINE KINASE 1590, CK-MB 13.8, ALBUMIN 3.3. AN ABG WAS OBTAINED THIS MORNING AND REVEALED: PH 7.370, PC02 57, P02 101, HC03 33.0, 02 SAT 6.1, A-A GRADIENT 184, FI02 50. A CHEST XRAY WAS OBTAINED AND REVEALED: Developing subsegmental atelectasis right lower lung. No change otherwise. MOST RECENT EKG REVEALED: SINUS RHYTHM WITH HR 87. SHE IS CURRENTLY RECEIVING NORMAL SALINE AT 50 ML/HR, PULMICORT NEBS BID, XOPENEX NEB TX Q6H, LEVAQUIN 750MG IV DAILY, MORPHINE 1-2MG IV Q4H PRN, SOLU-MEDROL 80MG IV Q8H, ELIQUIS 5MG PO BID, CELEXA 20MG PO DAILY, NORCO 7.5/325MG PO Q6H PRN, SYNTHROID 150MCG PO DAILY, ATIVAN 1MG PO TID PRN, LOPRESSOR 25MG PO DAILY, ULTRAM 50MG PO Q6H PRN, AND THE MAGNESIUM PROTOCOL. WE WILL CONTINUE WITH CURRENT PLAN OF CARE TODAY. OTHERWISE, WE PLAN TO FOLLOW UP WITH AM LABS AND CONTINUE TO MONITOR. TIME SPENT ON CLINICAL ASSESSMENT, REVIEWING LABS AND IMAGING, DECISION MAKING, AND DOCUMENTATION WAS GREATER THAN 45 MINUTES. - Past Medical Family Social History Past Med/Fam/Surg Hx: No changes since H&P Allergies: Allergies No Known Drug Allergies Allergy (Verified 12/11/19 12:58) - Review of Systems ROS: No change since H&P - Vital Signs and I&O's Vital Signs: Temperature 98.1 F Pulse Rate [Right Radial] 96 Pulse Rate 99 Respiratory Rate 20 Blood Pressure [Right Arm] 167/85 Blood Pressure 146/64 O2 Sat by Pulse Oximetry 95 Intake and Output: Intake & Output 08/14/20 08/15/20 08/16/20 08/17/20 11:59 11:59 11:59 11:59 Intake Total 60 / 60 2255 / 2255 1607 / 1607 Output Total 600 / 600 600 / 600 Balance 60 / 60 1655 / 1655 1007 / 1007 - Physical Exam Oriented: Normal Eyes: Normal Ear: Normal Nose: Normal Throat: Normal Cardiovascular: Normal : Normal Auscultation: Bowel Sounds: Normal Palpation: Normal Tenderness: Normal Skin: Normal Musculoskeletal: Normal Psychiatric: Normal Mood Description: Calm Affect: Normal Speech Pattern: Clear, Appropriate - Laboratory and Diagnostics Result Diagrams: 08/16/20 03:18 08/16/20 03:18 Labs: 08/15/20 15:00 Urine,Clean Catch Urine Culture - Preliminary Laboratory WBC 13.0 X10^3/uL (3.6-10.0) H 08/16/20 03:18 RBC 4.17 X10^6/uL (3.5-5.4) 08/16/20 03:18 Hgb 11.9 g/dL (12.0-16.0) L 08/16/20 03:18 Hct 37.6 % (36.0-47.0) 08/16/20 03:18 MCV 90.1 fL (80.0-100.0) 08/16/20 03:18 MCH 28.5 pg (27.0-34.0) 08/16/20 03:18 MCHC 31.7 g/dL (33.0-35.0) L 08/16/20 03:18 RDW 14.6 % (11.6-16.5) 08/16/20 03:18 Plt Count 238 X10^3/uL (150.0-450.0) 08/16/20 03:18 MPV 9.1 fL (7.4-11.0) 08/16/20 03:18 Neut % (Auto) 88.4 % (42.0-75.0) H 08/16/20 03:18 Lymph % (Auto) 6.4 % (21.0-51.0) L 08/16/20 03:18 [place] % (Auto) 4.9 % (0.0-13.0) 08/16/20 03:18 Eos % (Auto) 0.0 % (0.9-2.9) L 08/16/20 03:18 Baso % (Auto) 0.3 % (0.2-1.0) 08/16/20 03:18 Neut # (Auto) 11.5 x10^3/uL (2.2-4.8) H 08/16/20 03:18 Lymph # (Auto) 0.8 X10^3/uL (1.3-2.9) L 08/16/20 03:18 [place] # (Auto) 0.6 x10^3/uL (0.3-0.8) 08/16/20 03:18 Eos # (Auto) 0.0 x10^3/uL (0.0-0.2) 08/16/20 03:18 Baso # (Auto) 0.0 X10^3/uL (0.0-0.1) 08/16/20 03:18 Absolute Nucleated RBC 0.0 /100WBC 08/16/20 03:18 D-Dimer 0.53 ug/ml (0.0-0.57) 08/15/20 19:58 Sample Site Lr 08/16/20 04:52 ABG pH 7.370 (7.35-7.45) 08/16/20 04:52 ABG pCO2 57.0 mmHg (35.0-45.0) H* 08/16/20 04:52 ABG pO2 101.0 mmHg (80.0-100.0) H 08/16/20 04:52 ABG HCO3 33.0 mmol/L (22-26) H* 08/16/20 04:52 ABG O2 Saturation 98.0 % (90-100) 08/16/20 04:52 ABG Base Excess 6.1 mmol/L (-2.0-2.0) H 08/16/20 04:52 Michael Test Pos 08/16/20 04:52 A-a Gradient 184.0 mmHg 08/16/20 04:52 FiO2 50.0 08/16/20 04:52 Blood Gas Comments Elias well 08/16/20 04:52 Sodium 139 mmol/L (136-145) 08/16/20 03:18 Corrected Sodium 141 mmol/L (136-145) 08/16/20 03:18 Potassium 4.6 mmol/L (3.5-5.1) 08/16/20 03:18 Chloride 99 mmol/L (98-107) 08/16/20 03:18 Carbon Dioxide 33.4 mmol/L (21-32) H 08/16/20 03:18 BUN 26 mg/dL (7-18) H 08/16/20 03:18 Creatinine 1.19 mg/dL (0.55-1.02) H 08/16/20 03:18 Est GFR (MDRD) Af Amer 57 (>60) L 08/16/20 03:18 Est GFR (MDRD) Non-Af 47 (>60) L 08/16/20 03:18 Glucose 165 mg/dL (65-99) H 08/16/20 03:18 POC Glucose (mg/dL) 176 mg/dL (65-99) H 08/16/20 11:04 Calcium 5.8 mg/dL (8.5-10.1) L* 08/16/20 03:18 Corrected Calcium 6.4 mg/dL (8.5-10.1) L 08/16/20 03:18 Magnesium 2.7 mg/dL (1.7-2.9) 08/16/20 03:18 Total Bilirubin 0.80 mg/dL (0.2-1.0) 08/16/20 03:18 AST 29 Units/L (15-37) 08/16/20 03:18 ALT 31 Units/L (12-78) 08/16/20 03:18 Alkaline Phosphatase 96 Units/L (46-116) 08/16/20 03:18 Creatine Kinase 1590 Units/L (26-192) H 08/16/20 03:18 CK-MB (CK-2) 13.8 ng/mL (0-4.0) H* 08/16/20 03:18 CK/CKMB % Calc 0.9 % (<4) 08/16/20 03:18 Troponin I < 0.02 ng/mL (0-1.5) 08/16/20 03:18 B-Natriuretic Peptide 103 pg/mL (0-79) H 08/15/20 01:43 Total Protein 6.4 g/dL (6.4-8.2) 08/16/20 03:18 Albumin 3.3 g/dL (3.4-5.0) L 08/16/20 03:18 Globulin 3.1 g/dL (2.5-4.5) 08/16/20 03:18 Albumin/Globulin Ratio 1.1 Ratio (1.1-2.1) 08/16/20 03:18 Specimen Type Clean catch urine 08/15/20 15:00 Urine Color Dark yellow (YELLOW) 08/15/20 15:00 Urine Appearance Hazy (CLEAR) 08/15/20 15:00 Urine pH 5.0 (5.0 - 8.0) 08/15/20 15:00 Ur Specific [place] 1.030 (1.000-1.030) 08/15/20 15:00 Urine Protein 3+ (NEGATIVE) 08/15/20 15:00 Urine Glucose (UA) Negative (NEGATIVE) 08/15/20 15:00 Urine Ketones Negative (NEGATIVE) 08/15/20 15:00 Urine Occult Blood 5+ (NEGATIVE) 08/15/20 15:00 Urine Nitrite Positive (NEGATIVE) 08/15/20 15:00 Urine Bilirubin Negative (NEGATIVE) 08/15/20 15:00 Urine Urobilinogen Normal (NORMAL) 08/15/20 15:00 Ur Leukocyte Esterase 1+ (NEGATIVE) 08/15/20 15:00 Urine RBC Tntc /HPF (0-3) A 08/15/20 15:00 Urine WBC 5-10 /HPF (0-5) A 08/15/20 15:00 Ur Squamous Epith Cells Few /HPF (NEGATIVE) 08/15/20 15:00 Urine Bacteria 2+ /HPF (NEGATIVE) 08/15/20 15:00 Urine Yeast Moderate /HPF (NEGATIVE) 08/15/20 15:00 Ur Culture Indicated? Yes/culture set up 08/15/20 15:00 SARS-CoV-2 (PCR) Negative (NEGATIVE) 08/15/20 02:30 Influenza Type A (PCR) Negative (NEGATIVE) 08/15/20 02:30 Influenza Type B (PCR) Negative (NEGATIVE) 08/15/20 02:30 RSV (PCR) Negative (NEGATIVE) 08/15/20 02:30 - Plan (1) Chronic obstructive pulmonary disease with acute exacerbation Status: Acute Plan: SUPPLEMENTAL OXYGEN, NORMAL SALINE AT 50 ML/HR, PULMICORT NEBS BID, XOPENEX NEB TX Q6H, LEVAQUIN 750MG IV DAILY, MORPHINE 1-2MG IV Q4H PRN, SOLU- MEDROL 80MG IV Q8H, ELIQUIS 5MG PO BID, CELEXA 20MG PO DAILY, NORCO 7.5/325MG PO Q6H PRN, SYNTHROID 150MCG PO DAILY, ATIVAN 1MG PO TID PRN, LOPRESSOR 25MG PO DAILY, ULTRAM 50MG PO Q6H PRN, AND THE MAGNESIUM PROTOCOL. (2) Hypoxia Status: Acute (3) Urinary tract infection Status: Acute Qualifiers: Urinary tract infection type: acute cystitis Hematuria presence: with hematuria Qualified Code(s): N30.01 - Acute cystitis with hematuria
[2020-08-16] MEDS: RESTORIL CAP 15 MG PO PRN (22:43)
[2020-08-17] MEDS: NS 1000 ML 1,000 ML IV SCH ×3 (00:27→19:15)
[2020-08-17 05:04] LABS: BASOPHILS # (AUTO) 0.1 X10^3/uL (0.0-0.1); BASOPHILS % (AUTO) 0.8 % (0.2-1.0); EOSINOPHILS % (AUTO) 0.1 % (0.9-2.9); HEMATOCRIT 38.2 % (36.0-47.0); HEMOGLOBIN 12.2 g/dL (12.0-16.0); LYMPHOCYTES # (AUTO) 0.6 X10^3/uL (1.3-2.9); LYMPHOCYTES % (AUTO) 4.5 % (21.0-51.0); MEAN CORPUSCULAR HEMOGLOBIN 28.8 pg (27.0-34.0); MEAN CORPUSCULAR HGB CONC 31.8 g/dL (33.0-35.0); MEAN CORPUSCULAR VOLUME 90.6 fL (80.0-100.0); MEAN PLATELET VOLUME 9.7 fL (7.4-11.0); MONOCYTES # (AUTO) 0.5 x10^3/uL (0.3-0.8); MONOCYTES % (AUTO) 3.6 % (0.0-13.0); NEUTROPHILS # (AUTO) 13.1 x10^3/uL (2.2-4.8); PLATELET COUNT 252 X10^3/uL (150.0-450.0); RED BLOOD COUNT 4.22 X10^6/uL (3.5-5.4); RED CELL DISTRIBUTION WIDTH 14.4 % (11.6-16.5); WHITE BLOOD COUNT 14.4 X10^3/uL (3.6-10.0)
[2020-08-17 05:23] LABS: ABG ALLEN TEST POS; ABG BASE EXCESS 6.7 mmol/L (-2.0-2.0); ABG HCO3 33.9 mmol/L (22-26)
[2020-08-17] MEDS: SOLU-Medrol 125 MG VIAL IVP SCH ×3 (05:27→22:27)
[2020-08-17] MEDS: XOPENEX 1.25 MG/3 ML NEBULE NEB SCH ×3 (05:30→17:10)
[2020-08-17 05:41] LABS: ALANINE AMINOTRANSFERASE 38 Units/L (12-78); ALKALINE PHOSPHATASE 93 Units/L (46-116); ASPARTATE AMINO TRANSFERASE 38 Units/L (15-37); BLOOD UREA NITROGEN 20 mg/dL (7-18); CARBON DIOXIDE 29.9 mmol/L (21-32); CHLORIDE 102 mmol/L (98-107); COR CA(FOR HYPOALB) 6.7 mg/dL (8.5-10.1); COR NA(FOR HYPERGLY) 144 mmol/L (136-145); CREATININE 1.02 mg/dL (0.55-1.02); SODIUM 142 mmol/L (136-145); TOTAL PROTEIN 6.3 g/dL (6.4-8.2); TROPONIN I < 0.02 ng/mL (0-1.5); eGFR NON BLACK RACES 56 (>60)
[2020-08-17 05:43] LABS: CKMB % 1.4 % (<4)
[2020-08-17 05:45] LABS: CALCIUM 5.9 mg/dL (8.5-10.1); CREATINE KINASE 1851 Units/L (26-192); CREATINE KINASE MB 24.9 ng/mL (0-4.0)
[2020-08-17 05:48] LABS: PLATELET MORPHOLOGY COMMENT NORMAL (NORMAL)
[2020-08-17] MEDS: SYNTHROID 150 mcg TAB PO SCH (05:49)
--- NOTE | 2020-08-17 07:32 | RAD ---
HISTORYShortness of breathSTUDYChest AP [id number] is mildly enlarged. No definite congestive heart failure is identified. No definite acute alveolar infiltrates or pleural effusions identified. Previously noted right basilar subsegmental atelectasis has resolved. No pleural effusions are identified. Bony thora x is unremarkable.IMPRESSIONMinimal cardiomegaly without congestive heart failureNo definite acute in filtratesElectronically signed by: MICHELLE VILLALTA (Aug 17, 2020 07:30:09)
[2020-08-17] MEDS: DIFLUCAN 200 MG IV PREMIX* 200 MG/100 ML BAG IV SCH (08:19)
[2020-08-17] MEDS: CELEXA PO SCH (08:19)
[2020-08-17] MEDS: ELIQUIS PO SCH ×2 (08:20→20:04)
[2020-08-17] MEDS: LOPRESSOR TAB 25 MG PO SCH (08:20)
[2020-08-17] MEDS: PULMICORT NEB TX 0.5 MG NEB SCH ×2 (08:55→21:22)
--- NOTE | 2020-08-17 09:57 | PCM.PROG ---
Progress Note - Progress Note for Day of Date of Exam: 08/17/20 - Subjective Subjective: WAS ADMITTED FOR TREATMENT OF COPD EXACERBATION, RESPIRATORY DISTRESS, HYPOXIA, AND A URINARY TRACT INFECTION. TODAY, SHE IS ALERT AND ORIENTED, SITTING UP IN BED ON MORNING ROUNDS. SHE IS CURRENTLY UTILIZING HEATED [place] FLOW OXYGEN. HER SATURATIONS HAVE BEEN 94-100%. TODAY, SHE CONTINUES WITH COMPLAINTS OF SHORTNESS OF BREATH AND WEAKNESS. SHE DOES ADMIT TO SLIGHT IMPROVEMENT SINCE YESTERDAY. ON EXAMINATION, HEART IS REGULAR IN RATE AND RHYTHM. BILATERAL LUNGS ARE NOTED WITH SCATTERED WHEEZING THROUGHOUT. ABDOMEN IS ROUND, SOFT, AND NON-TENDER WITH NORMAL BOWEL SOUNDS NOTED IN ALL QUADRANTS. HER VITALS THIS MORNING ARE: 97.8-95-18-94%-153/67. LABS WERE OBTAINED. ABNORMAL LAB VALUES INCLUDE THE FOLLOWING: WBC 14.4, BUN 20, GLUCOSE 170, CALCIUM 5.9, AST 38, CREATINE KINASE 1851. IT WAS 1590 YESTERDAY. BNP 130, TOTAL PROTEIN 6.3, ALBUMIN 3.0. AN ABG WAS OBTAINED THIS MORNING AND REVEALED: PH 7.360, PC02 60, P02 79, HC03 33.9, 02 SAT 95, BASE EXCESS 6.7, A-A GRADIENT 131, FI02 40. BLOOD AND URINE CULTURES ARE PENDING. A CHEST XRAY WAS OBTAINED AND REVEALED: Heart is mildly enlarged. No definite congestive heart failure is identified. No definite acute alveolar infiltrates or pleural effusions identified. Previously noted right basilar subsegmental atelectasis has resolved. No pleural effusions are identified. Bony thorax is unremarkable. SHE IS CURRENTLY RECEIVING NORMAL SALINE AT 50 ML/HR, PULMICORT NEBS BID, XOPENEX NEB TX Q6H, LEVAQUIN 750MG IV DAILY, MORPHINE 1-2MG IV Q4H PRN, SOLU-MEDROL 80MG IV Q8H, ELIQUIS 5MG PO BID, CELEXA 20MG PO DAILY, NORCO 7.5/325MG PO Q6H PRN, SYNTHROID 150MCG PO DAILY, ATIVAN 1MG PO TID PRN, LOPRESSOR 25MG PO DAILY, ULTRAM 50MG PO Q6H PRN, AND THE MAGNESIUM PROTOCOL. WE WILL CONTINUE WITH CURRENT PLAN OF CARE TODAY. OTHERWISE, WE PLAN TO FOLLOW UP WITH AM LABS AND CONTINUE TO MONITOR. TIME SPENT ON CLINICAL ASSESSMENT, REVIEWING LABS AND IMAGING, DECISION MAKING, AND DOCUMENTATION WAS GREATER THAN 45 MINUTES. - Past Medical Family Social History Past Med/Fam/Surg Hx: No changes since H&P Allergies: Allergies No Known Drug Allergies Allergy (Verified 12/11/19 12:58) - Review of Systems ROS: No change since H&P - Vital Signs and I&O's Vital Signs: Temperature 97.8 F Pulse Rate [Right Radial] 95 Pulse Rate 89 Respiratory Rate 18 Blood Pressure [Right Arm] 153/67 Blood Pressure 146/64 O2 Sat by Pulse Oximetry 95 Intake and Output: Intake & Output 08/14/20 08/15/20 08/16/20 08/17/20 11:59 11:59 11:59 11:59 Intake Total 60 / 60 2255 / 2255 2641 / 2641 Output Total 600 / 600 600 / 600 Balance 60 / 60 1655 / 1655 2040 / 204 - Physical Exam Oriented: Normal Eyes: Normal Ear: Normal Nose: Normal Throat: Normal Cardiovascular: Normal : Normal Auscultation: Bowel Sounds: Normal Palpation: Normal Tenderness: Normal Skin: Normal Musculoskeletal: Normal Psychiatric: Normal Mood Description: Calm Affect: Normal Speech Pattern: Clear, Appropriate - Laboratory and Diagnostics Result Diagrams: 08/17/20 04:05 08/17/20 04:05 Labs: 08/15/20 15:00 Urine,Clean Catch Urine Culture - Final Laboratory WBC 14.4 X10^3/uL (3.6-10.0) H 08/17/20 04:05 RBC 4.22 X10^6/uL (3.5-5.4) 08/17/20 04:05 Hgb 12.2 g/dL (12.0-16.0) 08/17/20 04:05 Hct 38.2 % (36.0-47.0) 08/17/20 04:05 MCV 90.6 fL (80.0-100.0) 08/17/20 04:05 MCH 28.8 pg (27.0-34.0) 08/17/20 04:05 MCHC 31.8 g/dL (33.0-35.0) L 08/17/20 04:05 RDW 14.4 % (11.6-16.5) 08/17/20 04:05 Plt Count 252 X10^3/uL (150.0-450.0) 08/17/20 04:05 Plt Count Comment Adequate (ADEQUATE) 08/17/20 04:05 MPV 9.7 fL (7.4-11.0) 08/17/20 04:05 Neut % (Auto) 91.0 % (42.0-75.0) H 08/17/20 04:05 Lymph % (Auto) 4.5 % (21.0-51.0) L 08/17/20 04:05 [place] % (Auto) 3.6 % (0.0-13.0) 08/17/20 04:05 Eos % (Auto) 0.1 % (0.9-2.9) L 08/17/20 04:05 Baso % (Auto) 0.8 % (0.2-1.0) 08/17/20 04:05 Neut # (Auto) 13.1 x10^3/uL (2.2-4.8) H 08/17/20 04:05 Lymph # (Auto) 0.6 X10^3/uL (1.3-2.9) L 08/17/20 04:05 [place] # (Auto) 0.5 x10^3/uL (0.3-0.8) 08/17/20 04:05 Eos # (Auto) 0.0 x10^3/uL (0.0-0.2) 08/17/20 04:05 Baso # (Auto) 0.1 X10^3/uL (0.0-0.1) 08/17/20 04:05 Absolute Nucleated RBC 0.1 /100WBC 08/17/20 04:05 Total Counted 100 08/17/20 04:05 Neutrophils % (Manual) 96 % (39-76) H 08/17/20 04:05 Lymphocytes % (Manual) 2 % (13-43) L 08/17/20 04:05 Monocytes % (Manual) 2 % (4-9) L 08/17/20 04:05 Plt Morphology Comment Normal (NORMAL) 08/17/20 04:05 RBC Morphology Normal (NORMAL) 08/17/20 04:05 D-Dimer 0.53 ug/ml (0.0-0.57) 08/15/20 19:58 Sample Site Lra 08/17/20 05:19 ABG pH 7.360 (7.35-7.45) 08/17/20 05:19 ABG pCO2 60.0 mmHg (35.0-45.0) H* 08/17/20 05:19 ABG pO2 79.0 mmHg (80.0-100.0) L 08/17/20 05:19 ABG HCO3 33.9 mmol/L (22-26) H* 08/17/20 05:19 ABG O2 Saturation 95.0 % (90-100) 08/17/20 05:19 ABG Base Excess 6.7 mmol/L (-2.0-2.0) H 08/17/20 05:19 Michael Test Pos 08/17/20 05:19 A-a Gradient 131.0 mmHg 08/17/20 05:19 FiO2 40 08/17/20 05:19 Blood Gas Comments Elias well mt 08/17/20 05:19 Sodium 142 mmol/L (136-145) 08/17/20 04:05 Corrected Sodium 144 mmol/L (136-145) 08/17/20 04:05 Potassium 4.4 mmol/L (3.5-5.1) 08/17/20 04:05 Chloride 102 mmol/L (98-107) 08/17/20 04:05 Carbon Dioxide 29.9 mmol/L (21-32) 08/17/20 04:05 BUN 20 mg/dL (7-18) H 08/17/20 04:05 Creatinine 1.02 mg/dL (0.55-1.02) 08/17/20 04:05 Est GFR (MDRD) Af Amer > 60 (>60) 08/17/20 04:05 Est GFR (MDRD) Non-Af 56 (>60) L 08/17/20 04:05 Glucose 170 mg/dL (65-99) H 08/17/20 04:05 POC Glucose (mg/dL) 176 mg/dL (65-99) H 08/16/20 11:04 Calcium 5.9 mg/dL (8.5-10.1) L* 08/17/20 04:05 Corrected Calcium 6.7 mg/dL (8.5-10.1) L 08/17/20 04:05 Magnesium 2.7 mg/dL (1.7-2.9) 08/16/20 03:18 Total Bilirubin 0.70 mg/dL (0.2-1.0) 08/17/20 04:05 AST 38 Units/L (15-37) H 08/17/20 04:05 ALT 38 Units/L (12-78) 08/17/20 04:05 Alkaline Phosphatase 93 Units/L (46-116) 08/17/20 04:05 Creatine Kinase 1851 Units/L (26-192) H 08/17/20 04:05 CK-MB (CK-2) 24.9 ng/mL (0-4.0) H* 08/17/20 04:05 CK/CKMB % Calc 1.4 % (<4) 08/17/20 04:05 Troponin I < 0.02 ng/mL (0-1.5) 08/17/20 04:05 B-Natriuretic Peptide 130 pg/mL (0-79) H 08/17/20 04:05 Total Protein 6.3 g/dL (6.4-8.2) L 08/17/20 04:05 Albumin 3.0 g/dL (3.4-5.0) L 08/17/20 04:05 Globulin 3.3 g/dL (2.5-4.5) 08/17/20 04:05 Albumin/Globulin Ratio 0.9 Ratio (1.1-2.1) L 08/17/20 04:05 Specimen Type Clean catch urine 08/15/20 15:00 Urine Color Dark yellow (YELLOW) 08/15/20 15:00 Urine Appearance Hazy (CLEAR) 08/15/20 15:00 Urine pH 5.0 (5.0 - 8.0) 08/15/20 15:00 Ur Specific [place] 1.030 (1.000-1.030) 08/15/20 15:00 Urine Protein 3+ (NEGATIVE) 08/15/20 15:00 Urine Glucose (UA) Negative (NEGATIVE) 08/15/20 15:00 Urine Ketones Negative (NEGATIVE) 08/15/20 15:00 Urine Occult Blood 5+ (NEGATIVE) 08/15/20 15:00 Urine Nitrite Positive (NEGATIVE) 08/15/20 15:00 Urine Bilirubin Negative (NEGATIVE) 08/15/20 15:00 Urine Urobilinogen Normal (NORMAL) 08/15/20 15:00 Ur Leukocyte Esterase 1+ (NEGATIVE) 08/15/20 15:00 Urine RBC Tntc /HPF (0-3) A 08/15/20 15:00 Urine WBC 5-10 /HPF (0-5) A 08/15/20 15:00 Ur Squamous Epith Cells Few /HPF (NEGATIVE) 08/15/20 15:00 Urine Bacteria 2+ /HPF (NEGATIVE) 08/15/20 15:00 Urine Yeast Moderate /HPF (NEGATIVE) 08/15/20 15:00 Ur Culture Indicated? Yes/culture set up 08/15/20 15:00 SARS-CoV-2 (PCR) Negative (NEGATIVE) 08/15/20 02:30 Influenza Type A (PCR) Negative (NEGATIVE) 08/15/20 02:30 Influenza Type B (PCR) Negative (NEGATIVE) 08/15/20 02:30 RSV (PCR) Negative (NEGATIVE) 08/15/20 02:30 - Plan (1) Chronic obstructive pulmonary disease with acute exacerbation Status: Acute Plan: SUPPLEMENTAL OXYGEN, NORMAL SALINE AT 50 ML/HR, PULMICORT NEBS BID, XOPENEX NEB TX Q6H, LEVAQUIN 750MG IV DAILY, MORPHINE 1-2MG IV Q4H PRN, SOLU- MEDROL 80MG IV Q8H, ELIQUIS 5MG PO BID, CELEXA 20MG PO DAILY, NORCO 7.5/325MG PO Q6H PRN, SYNTHROID 150MCG PO DAILY, ATIVAN 1MG PO TID PRN, LOPRESSOR 25MG PO DAILY, ULTRAM 50MG PO Q6H PRN, AND THE MAGNESIUM PROTOCOL. (2) Hypoxia Status: Acute (3) Urinary tract infection Status: Acute Qualifiers: Urinary tract infection type: acute cystitis Hematuria presence: with hematuria Qualified Code(s): N30.01 - Acute cystitis with hematuria
[2020-08-17] MEDS: LEVAQUIN PREMIX IV 750 MG 750 MG/150 ML BAG IV SCH (10:00)
[2020-08-17] MEDS: NORCO 7.5/325 MG TAB PO PRN (19:14)
[2020-08-17] MEDS: ATIVAN TAB 1 MG PO PRN (20:04)
[2020-08-17] MEDS: RESTORIL CAP 15 MG PO PRN (20:04)
[2020-08-18] MEDS: XOPENEX 1.25 MG/3 ML NEBULE NEB SCH ×4 (00:20→17:39)
[2020-08-18] MEDS: NS 1000 ML 1,000 ML IV SCH ×2 (03:53→20:21)
[2020-08-18] MEDS: NORCO 7.5/325 MG TAB PO PRN ×2 (03:53→20:50)
[2020-08-18 05:27] LABS: BASOPHILS % (AUTO) 0.2 % (0.2-1.0); HEMATOCRIT 40.7 % (36.0-47.0); HEMOGLOBIN 12.9 g/dL (12.0-16.0); LYMPHOCYTES # (AUTO) 0.8 X10^3/uL (1.3-2.9); LYMPHOCYTES % (AUTO) 5.2 % (21.0-51.0); MEAN CORPUSCULAR HEMOGLOBIN 28.9 pg (27.0-34.0); MEAN CORPUSCULAR HGB CONC 31.6 g/dL (33.0-35.0); MEAN CORPUSCULAR VOLUME 91.3 fL (80.0-100.0); MEAN PLATELET VOLUME 9.3 fL (7.4-11.0); MONOCYTES # (AUTO) 0.9 x10^3/uL (0.3-0.8); MONOCYTES % (AUTO) 5.8 % (0.0-13.0); NEUTROPHILS # (AUTO) 14.5 x10^3/uL (2.2-4.8); NEUTROPHILS % (AUTO) 88.8 % (42.0-75.0); PLATELET COUNT 306 X10^3/uL (150.0-450.0); RED BLOOD COUNT 4.45 X10^6/uL (3.5-5.4); RED CELL DISTRIBUTION WIDTH 14.7 % (11.6-16.5); WHITE BLOOD COUNT 16.3 X10^3/uL (3.6-10.0)
[2020-08-18] MEDS: SYNTHROID 150 mcg TAB PO SCH (05:36)
[2020-08-18] MEDS: SOLU-Medrol 125 MG VIAL IVP SCH ×3 (05:36→21:05)
[2020-08-18 06:17] LABS: ALANINE AMINOTRANSFERASE 49 Units/L (12-78); ALBUMIN 3.1 g/dL (3.4-5.0); ALKALINE PHOSPHATASE 122 Units/L (46-116); ASPARTATE AMINO TRANSFERASE 42 Units/L (15-37); BLOOD UREA NITROGEN 21 mg/dL (7-18); CALCIUM 6.2 mg/dL (8.5-10.1); CARBON DIOXIDE 28.8 mmol/L (21-32); CHLORIDE 102 mmol/L (98-107); COR CA(FOR HYPOALB) 6.9 mg/dL (8.5-10.1); COR NA(FOR HYPERGLY) 141 mmol/L (136-145); CREATININE 1.09 mg/dL (0.55-1.02); SODIUM 140 mmol/L (136-145); TOTAL PROTEIN 6.6 g/dL (6.4-8.2); TROPONIN I < 0.02 ng/mL (0-1.5); eGFR NON BLACK RACES 52 (>60)
[2020-08-18 06:18] LABS: CKMB % 1.2 % (<4); CREATINE KINASE 1556 Units/L (26-192)
[2020-08-18 06:19] LABS: CREATINE KINASE MB 19.2 ng/mL (0-4.0)
[2020-08-18] MEDS: PULMICORT NEB TX 0.5 MG NEB SCH ×2 (08:35→20:30)
[2020-08-18] MEDS: ELIQUIS PO SCH ×2 (08:59→20:51)
[2020-08-18] MEDS: LEVAQUIN PREMIX IV 750 MG 750 MG/150 ML BAG IV SCH (08:59)
[2020-08-18] MEDS: DIFLUCAN 200 MG IV PREMIX* 200 MG/100 ML BAG IV SCH (08:59)
[2020-08-18] MEDS: CELEXA PO SCH (09:00)
[2020-08-18] MEDS: LOPRESSOR TAB 25 MG PO SCH (09:00)
--- NOTE | 2020-08-18 10:16 | RAD ---
HISTORYSOBSTUDYCHEST, 1 [id number]/2021.TECHNIQUEAP view of the chestFINDINGSCardiac silhouette is borderline enlarged. Mediastinal contours are normal. Patient is rotated. Curvilinear band like right medial base opacity is present. No pleural effusion or pneumothorax. Soft tissue attenuation limits evaluation.IMPRESSIONBand like right medial base opacity consistent with subsegmental atelectasis. Borderline cardiomegaly.Electronically signed by: Lee Santos (Aug 18, 2020 06:54:50)
--- NOTE | 2020-08-18 10:58 | PCM.PROG ---
Progress Note - Progress Note for Day of Date of Exam: 08/18/20 - Subjective Subjective: WAS ADMITTED FOR TREATMENT OF COPD EXACERBATION, RESPIRATORY DISTRESS, HYPOXIA, AND A URINARY TRACT INFECTION. TODAY, SHE IS ALERT AND ORIENTED, SITTING UP IN BED ON MORNING ROUNDS. SHE IS CURRENTLY UTILIZING HEATED HIGH FLOW OXYGEN. HER SATURATIONS HAVE BEEN 90-98%. TODAY, SHE CONTINUES WITH COMPLAINTS OF SHORTNESS OF BREATH AND WEAKNESS. SHE DOES ADMIT TO SLIGHT IMPROVEMENT SINCE YESTERDAY. ON EXAMINATION, HEART IS REGULAR IN RATE AND RHYTHM. BILATERAL LUNGS ARE NOTED WITH SCATTERED WHEEZING THROUGHOUT. ABDOMEN IS ROUND, SOFT, AND NON-TENDER WITH NORMAL BOWEL SOUNDS NOTED IN ALL QUADRANTS. HER VITALS THIS MORNING ARE: 97.8-70-12-95%-137/72. LABS WERE OBTAINED. ABNORMAL LAB VALUES INCLUDE THE FOLLOWING: WBC 16.3, BUN 21, CREATININE 1.09, GLUCOSE 159, CALCIUM 6.2, AST 42, ALK PHOS 122, CREATINE KINASE 1556, CK-MB 19.2, ALBUMIN 3.1. BLOOD AND URINE CULTURES ARE PENDING. A CHEST XRAY WAS OBTAINED AND REVEALED: BAND LIKE RIGHT MEDIAL BASE OPACITY CONSISTENT WITH SUBSEGMENTAL ATELECTASIS. BORDERLINE CARDIOMEGALY. SHE IS CURRENTLY RECEIVING NORMAL SALINE AT 50 ML/HR, PULMICORT NEBS BID, XOPENEX NEB TX Q6H, LEVAQUIN 750MG IV DAILY, MORPHINE 1-2MG IV Q4H PRN, SOLU-MEDROL 80MG IV Q8H, ELIQUIS 5MG PO BID, CELEXA 20MG PO DAILY, NORCO 7.5/325MG PO Q6H PRN, SYNTHROID 150MCG PO DAILY, ATIVAN 1MG PO TID PRN, LOPRESSOR 25MG PO DAILY, ULTRAM 50MG PO Q6H PRN, AND THE MAGNESIUM PROTOCOL. WE WILL CONTINUE WITH CURRENT PLAN OF CARE TODAY. OTHERWISE, WE PLAN TO FOLLOW UP WITH AM LABS AND CONTINUE TO MONITOR. TIME SPENT ON CLINICAL ASSESSMENT, REVIEWING LABS AND IMAGING, DECISION MAKING, AND DOCUMENTATION WAS GREATER THAN 45 MINUTES. - Past Medical Family Social History Past Med/Fam/Surg Hx: No changes since H&P Allergies: Allergies No Known Drug Allergies Allergy (Verified 12/11/19 12:58) - Review of Systems ROS: No change since H&P - Vital Signs and I&O's Vital Signs: Temperature 97.8 F Pulse Rate [Left Brachial] 70 Pulse Rate [Right Radial] 75 Pulse Rate 71 Respiratory Rate 20 Blood Pressure [Left Arm] 137/72 Blood Pressure [Right Arm] 187/84 Blood Pressure 146/64 O2 Sat by Pulse Oximetry 94 Intake and Output: Intake & Output 08/15/20 08/16/20 08/17/20 08/18/20 11:59 11:59 11:59 11:59 Intake Total 60 / 60 2255 / 2255 2641 / 2641 2466 / 2466 Output Total 600 / 600 600 / 600 Balance 60 / 60 1655 / 1655 2041 / 2041 2465 / 2465 - Physical Exam Oriented: Normal Eyes: Normal Ear: Normal Nose: Normal Throat: Normal Cardiovascular: Normal : Normal Auscultation: Bowel Sounds: Normal Tenderness: Normal Skin: Normal Musculoskeletal: Normal Psychiatric: Normal Mood Description: Calm Affect: Normal Speech Pattern: Clear, Appropriate - Laboratory and Diagnostics Result Diagrams: 08/18/20 04:55 08/18/20 04:55 Labs: 08/15/20 01:43 Blood Blood Culture - Preliminary 08/15/20 01:52 Blood Blood Culture - Preliminary 08/15/20 15:00 Urine,Clean Catch Urine Culture - Final Laboratory WBC 16.3 X10^3/uL (3.6-10.0) H 08/18/20 04:55 RBC 4.45 X10^6/uL (3.5-5.4) 08/18/20 04:55 Hgb 12.9 g/dL (12.0-16.0) 08/18/20 04:55 Hct 40.7 % (36.0-47.0) 08/18/20 04:55 MCV 91.3 fL (80.0-100.0) 08/18/20 04:55 MCH 28.9 pg (27.0-34.0) 08/18/20 04:55 MCHC 31.6 g/dL (33.0-35.0) L 08/18/20 04:55 RDW 14.7 % (11.6-16.5) 08/18/20 04:55 Plt Count 306 X10^3/uL (150.0-450.0) 08/18/20 04:55 Plt Count Comment Adequate (ADEQUATE) 08/17/20 04:05 MPV 9.3 fL (7.4-11.0) 08/18/20 04:55 Neut % (Auto) 88.8 % (42.0-75.0) H 08/18/20 04:55 Lymph % (Auto) 5.2 % (21.0-51.0) L 08/18/20 04:55 [place] % (Auto) 5.8 % (0.0-13.0) 08/18/20 04:55 Eos % (Auto) 0.0 % (0.9-2.9) L 08/18/20 04:55 Baso % (Auto) 0.2 % (0.2-1.0) 08/18/20 04:55 Neut # (Auto) 14.5 x10^3/uL (2.2-4.8) H 08/18/20 04:55 Lymph # (Auto) 0.8 X10^3/uL (1.3-2.9) L 08/18/20 04:55 [place] # (Auto) 0.9 x10^3/uL (0.3-0.8) H 08/18/20 04:55 Eos # (Auto) 0.0 x10^3/uL (0.0-0.2) 08/18/20 04:55 Baso # (Auto) 0.0 X10^3/uL (0.0-0.1) 08/18/20 04:55 Absolute Nucleated RBC 0.1 /100WBC 08/18/20 04:55 Total Counted 100 08/17/20 04:05 Neutrophils % (Manual) 96 % (39-76) H 08/17/20 04:05 Lymphocytes % (Manual) 2 % (13-43) L 08/17/20 04:05 Monocytes % (Manual) 2 % (4-9) L 08/17/20 04:05 Plt Morphology Comment Normal (NORMAL) 08/17/20 04:05 RBC Morphology Normal (NORMAL) 08/17/20 04:05 D-Dimer 0.53 ug/ml (0.0-0.57) 08/15/20 19:58 Sample Site Lra 08/17/20 05:19 ABG pH 7.360 (7.35-7.45) 08/17/20 05:19 ABG pCO2 60.0 mmHg (35.0-45.0) H* 08/17/20 05:19 ABG pO2 79.0 mmHg (80.0-100.0) L 08/17/20 05:19 ABG HCO3 33.9 mmol/L (22-26) H* 08/17/20 05:19 ABG O2 Saturation 95.0 % (90-100) 08/17/20 05:19 ABG Base Excess 6.7 mmol/L (-2.0-2.0) H 08/17/20 05:19 Michael Test Pos 08/17/20 05:19 A-a Gradient 131.0 mmHg 08/17/20 05:19 FiO2 40 08/17/20 05:19 Blood Gas Comments Elias well mt 08/17/20 05:19 Sodium 140 mmol/L (136-145) 08/18/20 04:55 Corrected Sodium 141 mmol/L (136-145) 08/18/20 04:55 Potassium 4.7 mmol/L (3.5-5.1) 08/18/20 04:55 Chloride 102 mmol/L (98-107) 08/18/20 04:55 Carbon Dioxide 28.8 mmol/L (21-32) 08/18/20 04:55 BUN 21 mg/dL (7-18) H 08/18/20 04:55 Creatinine 1.09 mg/dL (0.55-1.02) H 08/18/20 04:55 Est GFR (MDRD) Af Amer > 60 (>60) 08/18/20 04:55 Est GFR (MDRD) Non-Af 52 (>60) L 08/18/20 04:55 Glucose 159 mg/dL (65-99) H 08/18/20 04:55 POC Glucose (mg/dL) 147 mg/dL (65-99) H 08/18/20 05:00 Calcium 6.2 mg/dL (8.5-10.1) L 08/18/20 04:55 Corrected Calcium 6.9 mg/dL (8.5-10.1) L 08/18/20 04:55 Magnesium 2.7 mg/dL (1.7-2.9) 08/16/20 03:18 Total Bilirubin 0.40 mg/dL (0.2-1.0) 08/18/20 04:55 AST 42 Units/L (15-37) H 08/18/20 04:55 ALT 49 Units/L (12-78) 08/18/20 04:55 Alkaline Phosphatase 122 Units/L (46-116) H 08/18/20 04:55 Creatine Kinase 1556 Units/L (26-192) H 08/18/20 04:55 CK-MB (CK-2) 19.2 ng/mL (0-4.0) H* 08/18/20 04:55 CK/CKMB % Calc 1.2 % (<4) 08/18/20 04:55 Troponin I < 0.02 ng/mL (0-1.5) 08/18/20 04:55 B-Natriuretic Peptide 130 pg/mL (0-79) H 08/17/20 04:05 Total Protein 6.6 g/dL (6.4-8.2) 08/18/20 04:55 Albumin 3.1 g/dL (3.4-5.0) L 08/18/20 04:55 Globulin 3.5 g/dL (2.5-4.5) 08/18/20 04:55 Albumin/Globulin Ratio 0.9 Ratio (1.1-2.1) L 08/18/20 04:55 Specimen Type Clean catch urine 08/15/20 15:00 Urine Color Dark yellow (YELLOW) 08/15/20 15:00 Urine Appearance Hazy (CLEAR) 08/15/20 15:00 Urine pH 5.0 (5.0 - 8.0) 08/15/20 15:00 Ur Specific [place] 1.030 (1.000-1.030) 08/15/20 15:00 Urine Protein 3+ (NEGATIVE) 08/15/20 15:00 Urine Glucose (UA) Negative (NEGATIVE) 08/15/20 15:00 Urine Ketones Negative (NEGATIVE) 08/15/20 15:00 Urine Occult Blood 5+ (NEGATIVE) 08/15/20 15:00 Urine Nitrite Positive (NEGATIVE) 08/15/20 15:00 Urine Bilirubin Negative (NEGATIVE) 08/15/20 15:00 Urine Urobilinogen Normal (NORMAL) 08/15/20 15:00 Ur Leukocyte Esterase 1+ (NEGATIVE) 08/15/20 15:00 Urine RBC Tntc /HPF (0-3) A 08/15/20 15:00 Urine WBC 5-10 /HPF (0-5) A 08/15/20 15:00 Ur Squamous Epith Cells Few /HPF (NEGATIVE) 08/15/20 15:00 Urine Bacteria 2+ /HPF (NEGATIVE) 08/15/20 15:00 Urine Yeast Moderate /HPF (NEGATIVE) 08/15/20 15:00 Ur Culture Indicated? Yes/culture set up 08/15/20 15:00 SARS-CoV-2 (PCR) Negative (NEGATIVE) 08/15/20 02:30 Influenza Type A (PCR) Negative (NEGATIVE) 08/15/20 02:30 Influenza Type B (PCR) Negative (NEGATIVE) 08/15/20 02:30 RSV (PCR) Negative (NEGATIVE) 08/15/20 02:30 - Plan (1) Chronic obstructive pulmonary disease with acute exacerbation Status: Acute Plan: SUPPLEMENTAL OXYGEN, NORMAL SALINE AT 50 ML/HR, PULMICORT NEBS BID, XOPENEX NEB TX Q6H, LEVAQUIN 750MG IV DAILY, MORPHINE 1-2MG IV Q4H PRN, SOLU- MEDROL 80MG IV Q8H, ELIQUIS 5MG PO BID, CELEXA 20MG PO DAILY, NORCO 7.5/325MG PO Q6H PRN, SYNTHROID 150MCG PO DAILY, ATIVAN 1MG PO TID PRN, LOPRESSOR 25MG PO DAILY, ULTRAM 50MG PO Q6H PRN, AND THE MAGNESIUM PROTOCOL. (2) Hypoxia Status: Acute (3) Urinary tract infection Status: Acute Qualifiers: Urinary tract infection type: acute cystitis Hematuria presence: with hematuria Qualified Code(s): N30.01 - Acute cystitis with hematuria
[2020-08-18] MEDS: ATIVAN TAB 1 MG PO PRN ×2 (20:40→20:52)
[2020-08-19] MEDS: XOPENEX 1.25 MG/3 ML NEBULE NEB SCH ×4 (00:05→17:24)
[2020-08-19 05:01] LABS: ABG BASE EXCESS 7.2 mmol/L (-2.0-2.0); ABG HCO3 35.6 mmol/L (22-26)
[2020-08-19 05:02] LABS: ABG ALLEN TEST POS
[2020-08-19 05:22] LABS: BASOPHILS % (AUTO) 0.2 % (0.2-1.0); HEMATOCRIT 39.5 % (36.0-47.0); HEMOGLOBIN 12.5 g/dL (12.0-16.0); LYMPHOCYTES # (AUTO) 0.6 X10^3/uL (1.3-2.9); LYMPHOCYTES % (AUTO) 4.9 % (21.0-51.0); MEAN CORPUSCULAR HEMOGLOBIN 28.9 pg (27.0-34.0); MEAN CORPUSCULAR HGB CONC 31.7 g/dL (33.0-35.0); MEAN CORPUSCULAR VOLUME 91.3 fL (80.0-100.0); MEAN PLATELET VOLUME 8.9 fL (7.4-11.0); MONOCYTES # (AUTO) 0.5 x10^3/uL (0.3-0.8); MONOCYTES % (AUTO) 4.4 % (0.0-13.0); NEUTROPHILS % (AUTO) 90.5 % (42.0-75.0); PLATELET COUNT 236 X10^3/uL (150.0-450.0); RED BLOOD COUNT 4.32 X10^6/uL (3.5-5.4); RED CELL DISTRIBUTION WIDTH 14.8 % (11.6-16.5); WHITE BLOOD COUNT 12.1 X10^3/uL (3.6-10.0)
[2020-08-19] MEDS: SYNTHROID 150 mcg TAB PO SCH (05:51)
[2020-08-19] MEDS: SOLU-Medrol 125 MG VIAL IVP SCH ×3 (05:51→22:01)
[2020-08-19 05:55] LABS: PLATELET MORPHOLOGY COMMENT NORMAL (NORMAL)
[2020-08-19 06:04] LABS: ALANINE AMINOTRANSFERASE 50 Units/L (12-78); ALBUMIN 2.9 g/dL (3.4-5.0); ALKALINE PHOSPHATASE 94 Units/L (46-116); ASPARTATE AMINO TRANSFERASE 33 Units/L (15-37); BLOOD UREA NITROGEN 19 mg/dL (7-18); CALCIUM 6.2 mg/dL (8.5-10.1); CARBON DIOXIDE 31.8 mmol/L (21-32); CHLORIDE 103 mmol/L (98-107); CKMB % 1.1 % (<4); COR CA(FOR HYPOALB) 7.1 mg/dL (8.5-10.1); COR NA(FOR HYPERGLY) 140 mmol/L (136-145); CREATINE KINASE 913 Units/L (26-192); CREATININE 0.92 mg/dL (0.55-1.02); SODIUM 139 mmol/L (136-145); TOTAL PROTEIN 6.1 g/dL (6.4-8.2); TROPONIN I < 0.02 ng/mL (0-1.5); eGFR NON BLACK RACES > 60 (>60)
[2020-08-19 06:06] LABS: CREATINE KINASE MB 10.3 ng/mL (0-4.0)
--- NOTE | 2020-08-19 06:10 | RAD ---
HISTORYShortness of breathSTUDYChest AP [id number]/23/2021FINDINGSPatient is rotated to the right. The heart remains enlarged. No d efinite acute infiltrates are identified. There is some subsegmental atelectasis in the medial right lung base less prominent than on the prior examination. No pleural effusions are identified. Bony tho rax is unremarkable.IMPRESSIONContinued cardiomegaly without congestive heart failureNo acute infiltr atesSubsegmental atelectasis medial right lung baseElectronically signed by: MICHELLE VILLALTA (Aug 19, 2 021 06:08:54)
[2020-08-19] MEDS: PULMICORT NEB TX 0.5 MG NEB SCH ×2 (08:00→20:20)
[2020-08-19] MEDS: ATIVAN TAB 1 MG PO PRN ×2 (09:18→22:01)
[2020-08-19] MEDS: LOPRESSOR TAB 25 MG PO SCH (09:18)
[2020-08-19] MEDS: LEVAQUIN PREMIX IV 750 MG 750 MG/150 ML BAG IV SCH (09:18)
[2020-08-19] MEDS: CELEXA PO SCH (09:18)
[2020-08-19] MEDS: ELIQUIS PO SCH ×2 (09:18→20:54)
[2020-08-19] MEDS: NS 1000 ML 1,000 ML IV SCH ×3 (09:20→22:00)
--- NOTE | 2020-08-19 10:41 | PCM.PROG ---
Progress Note - Progress Note for Day of Date of Exam: 08/19/20 - Subjective Subjective: WAS ADMITTED FOR TREATMENT OF COPD EXACERBATION, RESPIRATORY DISTRESS, HYPOXIA, AND A URINARY TRACT INFECTION. TODAY, SHE IS ALERT AND ORIENTED, SITTING UP IN BED ON MORNING ROUNDS. SHE REMAINS ON HEATED HIGH FLOW OXYGEN AT 40%. SHE DID UTILIZE THE BIPAP THROUGHOUT THE NIGHT. HER SA TURATIONS HAVE BEEN 90-97%. TODAY, SHE CONTINUES WITH COMPLAINTS OF SHORTNESS OF BREATH AND WEAKNESS. ON EXAMINATION, HEART IS REGULAR IN RATE AND RHYTHM. BILATERAL LUNGS ARE NOTED WITH SCATTERED WHEEZING THROUGHOUT. ABDOMEN IS ROUND, SOFT, AND NON-TENDER WITH NORMAL BOWEL SOUNDS NOTED IN ALL QUADRANTS. HER VITALS THIS MORNING ARE: 97.0-65-18-97%-137/79. LABS WERE OBTAINED. ABNORMAL LAB VALUES INCLUDE THE FOLLOWING: WBC 12.1, POTASSIUM 5.3, BUN 19, GLUCOSE 139, CALCIUM 6.2, CREATINE KINASE 913, CK-MB 10.3, TOTAL PROTEIN 6.1, ALBUMIN 2.9. BLOOD AND URINE CULTURES ARE PENDING. AN ABG WAS OBTAINED AND REVEALED: PH 7.320, PC02 69, P02 87.0, HC03 35.6, 02 SAT 96, BASE EXCESS 7.2, A-A GRADIENT 112, FI02 40. A CHEST XRAY WAS OBTAINED AND REVEALED: Continued cardiomegaly without congestive heart failure. No acute infiltrates. Subsegmental atelectasis medial right lung base . SHE IS CURRENTLY RECEIVING NORMAL SALINE AT 50 ML/HR, PULMICORT NEBS BID, XOPENEX NEB TX Q6H, LEVAQUIN 750MG IV DAILY, MORPHINE 1-2MG IV Q4H PRN, SOLU- MEDROL 80MG IV Q8H, ELIQUIS 5MG PO BID, CELEXA 20MG PO DAILY, NORCO 7.5/325MG PO Q6H PRN, SYNTHROID 150MCG PO DAILY, ATIVAN 1MG PO TID PRN, LOPRESSOR 25MG PO DAILY, ULTRAM 50MG PO Q6H PRN, AND THE MAGNESIUM PROTOCOL. WE WILL CONTINUE WITH CURRENT PLAN OF CARE TODAY AND OBTAIN A CHEST CT WITH CONTRAST. OTHERWISE, WE PLAN TO FOLLOW UP WITH AM LABS AND CONTINUE TO MONITOR. TIME SPENT ON CLINICAL ASSESSMENT, REVIEWING LABS AND IMAGING, DECISION MAKING, AND DOCUMENTATION WAS GREATER THAN 45 MINUTES. - Past Medical Family Social History Past Med/Fam/Surg Hx: No changes since H&P Allergies: Allergies No Known Drug Allergies Allergy (Verified 12/11/19 12:58) - Review of Systems ROS: No change since H&P - Vital Signs and I&O's Vital Signs: Temperature 97 F Pulse Rate [Left Brachial] 65 Pulse Rate [Right Radial] 18 Pulse Rate 69 Respiratory Rate 20 Blood Pressure [Left Arm] 137/79 Blood Pressure [Right Arm] 187/84 Blood Pressure 146/64 O2 Sat by Pulse Oximetry 98 Intake and Output: Intake & Output 08/16/20 08/17/20 08/18/20 08/19/20 11:59 11:59 11:59 11:59 Intake Total 2255 / 2255 2641 / 2641 2466 / 2466 1661 / 1661 Output Total 600 / 600 600 / 600 Balance 1655 / 1655 2041 / 2041 2465 / 2465 1661 / 1661 - Physical Exam Oriented: Normal Eyes: Normal Ear: Normal Nose: Normal Throat: Normal Cardiovascular: Normal : Normal Auscultation: Bowel Sounds: Normal Tenderness: Normal Skin: Normal Musculoskeletal: Normal Psychiatric: Normal Mood Description: Calm Affect: Normal Speech Pattern: Clear, Appropriate - Laboratory and Diagnostics Result Diagrams: 08/19/20 04:35 08/19/20 04:35 Labs: 08/15/20 01:43 Blood Blood Culture - Preliminary 08/15/20 01:52 Blood Blood Culture - Preliminary 08/15/20 15:00 Urine,Clean Catch Urine Culture - Final Laboratory WBC 12.1 X10^3/uL (3.6-10.0) H 08/19/20 04:35 RBC 4.32 X10^6/uL (3.5-5.4) 08/19/20 04:35 Hgb 12.5 g/dL (12.0-16.0) 08/19/20 04:35 Hct 39.5 % (36.0-47.0) 08/19/20 04:35 MCV 91.3 fL (80.0-100.0) 08/19/20 04:35 MCH 28.9 pg (27.0-34.0) 08/19/20 04:35 MCHC 31.7 g/dL (33.0-35.0) L 08/19/20 04:35 RDW 14.8 % (11.6-16.5) 08/19/20 04:35 Plt Count 236 X10^3/uL (150.0-450.0) 08/19/20 04:35 Plt Count Comment Adequate (ADEQUATE) 08/19/20 04:35 MPV 8.9 fL (7.4-11.0) 08/19/20 04:35 Neut % (Auto) 90.5 % (42.0-75.0) H 08/19/20 04:35 Lymph % (Auto) 4.9 % (21.0-51.0) L 08/19/20 04:35 [place] % (Auto) 4.4 % (0.0-13.0) 08/19/20 04:35 Eos % (Auto) 0.0 % (0.9-2.9) L 08/19/20 04:35 Baso % (Auto) 0.2 % (0.2-1.0) 08/19/20 04:35 Neut # (Auto) 11.0 x10^3/uL (2.2-4.8) H 08/19/20 04:35 Lymph # (Auto) 0.6 X10^3/uL (1.3-2.9) L 08/19/20 04:35 [place] # (Auto) 0.5 x10^3/uL (0.3-0.8) 08/19/20 04:35 Eos # (Auto) 0.0 x10^3/uL (0.0-0.2) 08/19/20 04:35 Baso # (Auto) 0.0 X10^3/uL (0.0-0.1) 08/19/20 04:35 Absolute Nucleated RBC 0.0 /100WBC 08/19/20 04:35 Total Counted 100 08/19/20 04:35 Neutrophils % (Manual) 91 % (39-76) H 08/19/20 04:35 Lymphocytes % (Manual) 8 % (13-43) L 08/19/20 04:35 Monocytes % (Manual) 1 % (4-9) L 08/19/20 04:35 Plt Morphology Comment Normal (NORMAL) 08/19/20 04:35 RBC Morphology Normal (NORMAL) 08/19/20 04:35 D-Dimer 0.53 ug/ml (0.0-0.57) 08/15/20 19:58 Sample Site Rra 08/19/20 04:58 ABG pH 7.320 (7.35-7.45) L 08/19/20 04:58 ABG pCO2 69.0 mmHg (35.0-45.0) H* 08/19/20 04:58 ABG pO2 87.0 mmHg (80.0-100.0) 08/19/20 04:58 ABG HCO3 35.6 mmol/L (22-26) H* 08/19/20 04:58 ABG O2 Saturation 96.0 % (90-100) 08/19/20 04:58 ABG Base Excess 7.2 mmol/L (-2.0-2.0) H 08/19/20 04:58 Michael Test Pos 08/19/20 04:58 A-a Gradient 112.0 mmHg 08/19/20 04:58 FiO2 40 08/19/20 04:58 Blood Gas Comments Elias well mt 08/19/20 04:58 Sodium 139 mmol/L (136-145) 08/19/20 04:35 Corrected Sodium 140 mmol/L (136-145) 08/19/20 04:35 Potassium 5.3 mmol/L (3.5-5.1) H 08/19/20 04:35 Chloride 103 mmol/L (98-107) 08/19/20 04:35 Carbon Dioxide 31.8 mmol/L (21-32) 08/19/20 04:35 BUN 19 mg/dL (7-18) H 08/19/20 04:35 Creatinine 0.92 mg/dL (0.55-1.02) 08/19/20 04:35 Est GFR (MDRD) Af Amer > 60 (>60) 08/19/20 04:35 Est GFR (MDRD) Non-Af > 60 (>60) 08/19/20 04:35 Glucose 139 mg/dL (65-99) H 08/19/20 04:35 POC Glucose (mg/dL) 147 mg/dL (65-99) H 08/18/20 05:00 Calcium 6.2 mg/dL (8.5-10.1) L 08/19/20 04:35 Corrected Calcium 7.1 mg/dL (8.5-10.1) L 08/19/20 04:35 Magnesium 2.7 mg/dL (1.7-2.9) 08/16/20 03:18 Total Bilirubin 0.40 mg/dL (0.2-1.0) 08/19/20 04:35 AST 33 Units/L (15-37) 08/19/20 04:35 ALT 50 Units/L (12-78) 08/19/20 04:35 Alkaline Phosphatase 94 Units/L (46-116) 08/19/20 04:35 Creatine Kinase 913 Units/L (26-192) H 08/19/20 04:35 CK-MB (CK-2) 10.3 ng/mL (0-4.0) H* 08/19/20 04:35 CK/CKMB % Calc 1.1 % (<4) 08/19/20 04:35 Troponin I < 0.02 ng/mL (0-1.5) 08/19/20 04:35 B-Natriuretic Peptide 130 pg/mL (0-79) H 08/17/20 04:05 Total Protein 6.1 g/dL (6.4-8.2) L 08/19/20 04:35 Albumin 2.9 g/dL (3.4-5.0) L 08/19/20 04:35 Globulin 3.2 g/dL (2.5-4.5) 08/19/20 04:35 Albumin/Globulin Ratio 0.9 Ratio (1.1-2.1) L 08/19/20 04:35 PTH Intact 16 pg/mL (15-65) 08/15/20 01:43 Calcium (PTH Intact) 5.7 mg/dL 08/15/20 01:43 Specimen Type Clean catch urine 08/15/20 15:00 Urine Color Dark yellow (YELLOW) 08/15/20 15:00 Urine Appearance Hazy (CLEAR) 08/15/20 15:00 Urine pH 5.0 (5.0 - 8.0) 08/15/20 15:00 Ur Specific [place] 1.030 (1.000-1.030) 08/15/20 15:00 Urine Protein 3+ (NEGATIVE) 08/15/20 15:00 Urine Glucose (UA) Negative (NEGATIVE) 08/15/20 15:00 Urine Ketones Negative (NEGATIVE) 08/15/20 15:00 Urine Occult Blood 5+ (NEGATIVE) 08/15/20 15:00 Urine Nitrite Positive (NEGATIVE) 08/15/20 15:00 Urine Bilirubin Negative (NEGATIVE) 08/15/20 15:00 Urine Urobilinogen Normal (NORMAL) 08/15/20 15:00 Ur Leukocyte Esterase 1+ (NEGATIVE) 08/15/20 15:00 Urine RBC Tntc /HPF (0-3) A 08/15/20 15:00 Urine WBC 5-10 /HPF (0-5) A 08/15/20 15:00 Ur Squamous Epith Cells Few /HPF (NEGATIVE) 08/15/20 15:00 Urine Bacteria 2+ /HPF (NEGATIVE) 08/15/20 15:00 Urine Yeast Moderate /HPF (NEGATIVE) 08/15/20 15:00 Ur Culture Indicated? Yes/culture set up 08/15/20 15:00 SARS-CoV-2 (PCR) Negative (NEGATIVE) 08/15/20 02:30 Influenza Type A (PCR) Negative (NEGATIVE) 08/15/20 02:30 Influenza Type B (PCR) Negative (NEGATIVE) 08/15/20 02:30 RSV (PCR) Negative (NEGATIVE) 08/15/20 02:30 - Plan (1) Chronic obstructive pulmonary disease with acute exacerbation Status: Acute Plan: SUPPLEMENTAL OXYGEN, NORMAL SALINE AT 50 ML/HR, PULMICORT NEBS BID, XOPE NEX NEB TX Q6H, LEVAQUIN 750MG IV DAILY, MORPHINE 1-2MG IV Q4H PRN, SOLU-MEDROL 80MG IV Q8H, ELIQUIS 5MG PO BID, CELEXA 20MG PO DAILY, [place] 7.5/325MG PO Q6H PRN, SYNTHROID 150MCG PO DAILY, ATIVAN 1MG PO TID PRN, LOPRESSOR 25MG PO DAILY, ULTRAM 50MG PO Q6H PRN, AND THE MAGNESIUM PROTOCOL. (2) Hypoxia Status: Acute (3) Urinary tract infection Status: Acute Qualifiers: Urinary tract infection type: acute cystitis Hematuria presence: with hematuria Qualified Code(s): N30.01 - Acute cystitis with hematuria
[2020-08-19] MEDS: DIFLUCAN 200 MG IV PREMIX* 200 MG/100 ML BAG IV SCH (11:08)
--- NOTE | 2020-08-19 11:41 | CT ---
HISTORYCOUGH, RESPIRATORY DISTRESS, COPD, HYPOXIASTUDYCT chest with IV contrastCOMPARISONCT 01/03/2019TECHNIQUEMultiple axial images of the chest were obtained from the thoracic inlet to the upper abdomenwith the administration of IV contrast. 75 cc Omnipaque 350 IV contrast. Sagittal and coronal reformations are performed. Dose reduction techniques including Automated Exposure Control (AEC) and adjustment of mA and kV were utilized.FINDINGSA calcified granuloma is seen in the left lingula. Prominent cardiophrenic fat pads are seen with mild atelectasis in the right middle lobe and lingula.There is new curvilinear atelectasis at the right CP angle, as well as new mild atelectasis medially in the left CP angle. No pneumothorax or pleural effusion. No suggestion of pneumonia. No bronchiectasis or honeycombing is seen.The heart and thoracic aorta are normal in size. There is no evidence of aortic dissection. No mediastinal or hilar lymphadenopathy is seen. PE study is not performed but no large proximal pulmonary embolus is seen.Bones are osteopenic but no fractures are seen. Prominent arthritic changes are seen in the shoulders. Moderate degenerative changes are seen in the lower thoracic spine.IMPRESSIONMild bibasilar atelectasis is new since prior study but no central obstructing lesion is identified. No suggestion of pneumonia.Electronically signed by: Raciel Levy (Aug 19, 2020 11:38:58)
[2020-08-20] MEDS: XOPENEX 1.25 MG/3 ML NEBULE NEB SCH ×4 (00:16→17:15)
[2020-08-20 04:30] LABS: ABG BASE EXCESS 11.7 mmol/L (-2.0-2.0)
[2020-08-20 04:31] LABS: ABG ALLEN TEST POS; ABG HCO3 38.7 mmol/L (22-26)
[2020-08-20 04:49] LABS: BASOPHILS % (AUTO) 0.2 % (0.2-1.0); HEMATOCRIT 38.6 % (36.0-47.0); HEMOGLOBIN 12.2 g/dL (12.0-16.0); LYMPHOCYTES # (AUTO) 0.5 X10^3/uL (1.3-2.9); LYMPHOCYTES % (AUTO) 4.8 % (21.0-51.0); MEAN CORPUSCULAR HGB CONC 31.7 g/dL (33.0-35.0); MEAN CORPUSCULAR VOLUME 91.4 fL (80.0-100.0); MONOCYTES # (AUTO) 0.4 x10^3/uL (0.3-0.8); MONOCYTES % (AUTO) 3.7 % (0.0-13.0); NEUTROPHILS # (AUTO) 8.8 x10^3/uL (2.2-4.8); NEUTROPHILS % (AUTO) 91.3 % (42.0-75.0); PLATELET COUNT 223 X10^3/uL (150.0-450.0); RED BLOOD COUNT 4.22 X10^6/uL (3.5-5.4); WHITE BLOOD COUNT 9.7 X10^3/uL (3.6-10.0)
[2020-08-20 04:57] LABS: ALANINE AMINOTRANSFERASE 41 Units/L (12-78); ALBUMIN 2.7 g/dL (3.4-5.0); ALKALINE PHOSPHATASE 84 Units/L (46-116); ASPARTATE AMINO TRANSFERASE 21 Units/L (15-37); BLOOD UREA NITROGEN 20 mg/dL (7-18); CALCIUM 6.3 mg/dL (8.5-10.1); CARBON DIOXIDE 35.2 mmol/L (21-32); CHLORIDE 102 mmol/L (98-107); COR CA(FOR HYPOALB) 7.3 mg/dL (8.5-10.1); COR NA(FOR HYPERGLY) 144 mmol/L (136-145); CREATININE 0.87 mg/dL (0.55-1.02); SODIUM 143 mmol/L (136-145); TOTAL PROTEIN 5.5 g/dL (6.4-8.2); eGFR NON BLACK RACES > 60 (>60)
[2020-08-20 05:14] LABS: PLATELET MORPHOLOGY COMMENT NORMAL (NORMAL)
[2020-08-20] MEDS: SOLU-Medrol 125 MG VIAL IVP SCH ×3 (05:18→22:00)
[2020-08-20] MEDS: SYNTHROID 150 mcg TAB PO SCH (05:31)
--- NOTE | 2020-08-20 06:13 | RAD ---
HISTORYShortness of breathSTUDYChest AP [id number]/24/2021 plain film and chest CTFINDINGSThe heart is within normal limits in size. The radha are normal. The lungs are generally mildly hyperinflated but free of acute infiltrates. There is some residual subsegmental atelectasis in the right lung base. No pleural effusions are identified. Bony thorax is unremarkable.IMPRESSIONNo change subsegmental atelectasis right lung baseElectronically signed by: MICHELLE VILLALTA (Aug 20, 2020 06:11:12)
[2020-08-20] MEDS: PULMICORT NEB TX 0.5 MG NEB SCH ×2 (09:00→20:30)
[2020-08-20] MEDS: CELEXA PO SCH (09:04)
[2020-08-20] MEDS: LOPRESSOR TAB 25 MG PO SCH (09:04)
[2020-08-20] MEDS: ELIQUIS PO SCH ×2 (09:04→20:54)
[2020-08-20] MEDS: DIFLUCAN 200 MG IV PREMIX* 200 MG/100 ML BAG IV SCH (09:04)
[2020-08-20] MEDS: ATIVAN TAB 1 MG PO PRN ×2 (09:04→20:54)
[2020-08-20 09:48] LABS: CKMB % 0.9 % (<4); CREATINE KINASE 482 Units/L (26-192); TROPONIN I < 0.02 ng/mL (0-1.5)
[2020-08-20 09:53] LABS: CREATINE KINASE MB 4.3 ng/mL (0-4.0)
[2020-08-20] MEDS: LEVAQUIN PREMIX IV 750 MG 750 MG/150 ML BAG IV SCH (10:25)
--- NOTE | 2020-08-20 10:33 | PCM.PROG ---
Progress Note - Progress Note for Day of Date of Exam: 08/20/20 - Subjective Subjective: WAS ADMITTED FOR TREATMENT OF COPD EXACERBATION, RESPIRATORY DISTRESS, HYPOXIA, AND A URINARY TRACT INFECTION. TODAY, SHE IS ALERT AND ORIENTED, SITTING UP IN BED ON MORNING ROUNDS. SHE IS CURRENTLY ON NASAL CANNULA AT 4 LITERS/MINUTE. SHE DID UTILIZE THE BIPAP THROUGHOUT THE NIGHT. HER SATURATIONS HAVE BEEN 95-100%. TODAY, SHE CONTINUES WITH COMPLAINTS OF SHORTNESS OF BREATH AND WEAKNESS, BUT REPORTS SLIGHT IMPROVEMENT SINCE YESTERDAY. ON EXAMINATION, HEART IS REGULAR IN RATE AND RHYTHM. BILATERAL LUNGS ARE NOTED WITH SCATTERED WHEEZING THROUGHOUT. ABDOMEN IS ROUND, SOFT, AND NON- TENDER WITH NORMAL BOWEL SOUNDS NOTED IN ALL QUADRANTS. HER VITALS THIS MORNING ARE: 97.6-82-20-95%-164/73. LABS WERE OBTAINED. ABNORMAL LAB VALUES INCLUDE THE FOLLOWING: CARBON DIOXIDE 35.2, BUN 20, GLUCOSE 162, CALCIUM 6.3, TOTAL PROTEIN 5.5, ALBUMIN 2.7, CREATINE KINASE 482, CK-MB 4.3. AN ABG WAS OBTAINED AND REVEALED: PH 7.410, PC02 61.0, P02 78, HC03 38.7, 02 SAT 96, BASE EXCESS 11.7, A-A GRADIENT 131, FI02 40. A CHEST XRAY WAS OBTAINED AND REVEALED: No change subsegmental atelectasis right lung base. A CHEST CT WITH CONTRAST WAS OBTAINED YESTERDAY AND REVEALED: Mild bibasilar atelectasis is new since prior study but no central obstructing lesion is identified. No suggestion of pneumonia. SHE IS CURRENTLY RECEIVING NORMAL SALINE AT 50 ML/HR, PULMICORT NEBS BID, XOPENEX NEB [place] Q6H, LEVAQUIN 750MG IV DAILY, MORPHINE 1-2MG IV Q4H PRN, SOLU-MEDROL 80MG IV Q8H, ELIQUIS 5MG PO BID, CELEXA 20MG PO DAILY, NORCO 7.5/325MG PO Q6H PRN, SYNTHROID 150MCG PO DAILY, ATIVAN 1MG PO TID PRN, LOPRESSOR 25MG PO DAILY, ULTRAM 50MG PO Q6H PRN, AND THE MAGNESIUM PROTOCOL. WE WILL CONTINUE WITH Megan PASTOR PLAN OF CARE TODAY. OTHERWISE, WE PLAN TO FOLLOW UP WITH AM LABS AND CONTINUE TO MONITOR. TIME SPENT ON CLINICAL ASSESSMENT, REVIEWING LABS AND IMAGING, DECISION MAKING, AND DOCUMENTATION WAS GREATER THAN 45 MINUTES. - Past Medical Family Social History Past Med/Fam/Surg Hx: No changes since H&P Allergies: Allergies No Known Drug Allergies Allergy (Verified 12/11/19 12:58) - Review of Systems ROS: No change since H&P - Vital Signs and I&O's Vital Signs: Temperature 97.6 F Pulse Rate [Left Brachial] 82 Pulse Rate [Right Radial] 18 Pulse Rate 82 Respiratory Rate 20 Blood Pressure [Left Arm] 164/73 Blood Pressure [Right Arm] 187/84 Blood Pressure 146/64 O2 Sat by Pulse Oximetry 99 Intake and Output: Intake & Output 08/17/20 08/18/20 08/19/20 08/20/20 11:59 11:59 11:59 11:59 Intake Total 2641 / 2641 2466 / 2466 1661 / 1661 2653 / 2653 Output Total 600 / 600 Balance 2040 / 2040 2465 / 2465 1661 / 1661 2653 / 2653 - Physical Exam Oriented: Normal Eyes: Normal Ear: Normal Nose: Normal Throat: Normal Respiratory: Generalized, Diminished Cardiovascular: Normal : Normal Auscultation: Bowel Sounds: Normal Palpation: Normal Tenderness: Normal Skin: Normal Musculoskeletal: Normal Psychiatric: Normal Mood Description: Calm Affect: Normal Speech Pattern: Clear, Appropriate - Laboratory and Diagnostics Result Diagrams: 08/20/20 04:10 08/20/20 04:10 Labs: 08/15/20 01:43 Blood Blood Culture - Final 08/15/20 01:52 Blood Blood Culture - Final 08/15/20 15:00 Urine,Clean Catch Urine Culture - Final Laboratory WBC 9.7 X10^3/uL (3.6-10.0) 08/20/20 04:10 RBC 4.22 X10^6/uL (3.5-5.4) 08/20/20 04:10 Hgb 12.2 g/dL (12.0-16.0) 08/20/20 04:10 Hct 38.6 % (36.0-47.0) 08/20/20 04:10 MCV 91.4 fL (80.0-100.0) 08/20/20 04:10 MCH 29.0 pg (27.0-34.0) 08/20/20 04:10 MCHC 31.7 g/dL (33.0-35.0) L 08/20/20 04:10 RDW 15.0 % (11.6-16.5) 08/20/20 04:10 Plt Count 223 X10^3/uL (150.0-450.0) 08/20/20 04:10 Plt Count Comment Adequate (ADEQUATE) 08/20/20 04:10 MPV 9.0 fL (7.4-11.0) 08/20/20 04:10 Neut % (Auto) 91.3 % (42.0-75.0) H 08/20/20 04:10 Lymph % (Auto) 4.8 % (21.0-51.0) L 08/20/20 04:10 [place] % (Auto) 3.7 % (0.0-13.0) 08/20/20 04:10 Eos % (Auto) 0.0 % (0.9-2.9) L 08/20/20 04:10 Baso % (Auto) 0.2 % (0.2-1.0) 08/20/20 04:10 Neut # (Auto) 8.8 x10^3/uL (2.2-4.8) H 08/20/20 04:10 Lymph # (Auto) 0.5 X10^3/uL (1.3-2.9) L 08/20/20 04:10 [place] # (Auto) 0.4 x10^3/uL (0.3-0.8) 08/20/20 04:10 Eos # (Auto) 0.0 x10^3/uL (0.0-0.2) 08/20/20 04:10 Baso # (Auto) 0.0 X10^3/uL (0.0-0.1) 08/20/20 04:10 Absolute Nucleated RBC 0.0 /100WBC 08/20/20 04:10 Total Counted 100 08/20/20 04:10 Neutrophils % (Manual) 91 % (39-76) H 08/20/20 04:10 Lymphocytes % (Manual) 8 % (13-43) L 08/20/20 04:10 Monocytes % (Manual) 1 % (4-9) L 08/20/20 04:10 Plt Morphology Comment Normal (NORMAL) 08/20/20 04:10 RBC Morphology Normal (NORMAL) 08/20/20 04:10 D-Dimer 0.53 ug/ml (0.0-0.57) 08/15/20 19:58 Sample Site Lra 08/20/20 04:25 ABG pH 7.410 (7.35-7.45) 08/20/20 04:25 ABG pCO2 61.0 mmHg (35.0-45.0) H* 08/20/20 04:25 ABG pO2 78.0 mmHg (80.0-100.0) L 08/20/20 04:25 ABG HCO3 38.7 mmol/L (22-26) H* 08/20/20 04:25 ABG O2 Saturation 96.0 % (90-100) 08/20/20 04:25 ABG Base Excess 11.7 mmol/L (-2.0-2.0) H 08/20/20 04:25 Michael Test Pos 08/20/20 04:25 A-a Gradient 131.0 mmHg 08/20/20 04:25 FiO2 40.0 08/20/20 04:25 Blood Gas Comments Elias well mt 08/20/20 04:25 Sodium 143 mmol/L (136-145) 08/20/20 04:10 Corrected Sodium 144 mmol/L (136-145) 08/20/20 04:10 Potassium 5.0 mmol/L (3.5-5.1) 08/20/20 04:10 Chloride 102 mmol/L (98-107) 08/20/20 04:10 Carbon Dioxide 35.2 mmol/L (21-32) H 08/20/20 04:10 BUN 20 mg/dL (7-18) H 08/20/20 04:10 Creatinine 0.87 mg/dL (0.55-1.02) 08/20/20 04:10 Est GFR (MDRD) Af Amer > 60 (>60) 08/20/20 04:10 Est GFR (MDRD) Non-Af > 60 (>60) 08/20/20 04:10 Glucose 162 mg/dL (65-99) H 08/20/20 04:10 POC Glucose (mg/dL) 147 mg/dL (65-99) H 08/18/20 05:00 Calcium 6.3 mg/dL (8.5-10.1) L 08/20/20 04:10 Corrected Calcium 7.3 mg/dL (8.5-10.1) L 08/20/20 04:10 Magnesium 2.7 mg/dL (1.7-2.9) 08/16/20 03:18 Total Bilirubin 0.50 mg/dL (0.2-1.0) 08/20/20 04:10 AST 21 Units/L (15-37) 08/20/20 04:10 ALT 41 Units/L (12-78) 08/20/20 04:10 Alkaline Phosphatase 84 Units/L (46-116) 08/20/20 04:10 Creatine Kinase 482 Units/L (26-192) H 08/20/20 04:10 CK-MB (CK-2) 4.3 ng/mL (0-4.0) H* 08/20/20 04:10 CK/CKMB % Calc 0.9 % (<4) 08/20/20 04:10 Troponin I < 0.02 ng/mL (0-1.5) 08/20/20 04:10 B-Natriuretic Peptide 130 pg/mL (0-79) H 08/17/20 04:05 Total Protein 5.5 g/dL (6.4-8.2) L 08/20/20 04:10 Albumin 2.7 g/dL (3.4-5.0) L 08/20/20 04:10 Globulin 2.8 g/dL (2.5-4.5) 08/20/20 04:10 Albumin/Globulin Ratio 1.0 Ratio (1.1-2.1) L 08/20/20 04:10 PTH Intact 16 pg/mL (15-65) 08/15/20 01:43 Calcium (PTH Intact) 5.7 mg/dL 08/15/20 01:43 Specimen Type Clean catch urine 08/15/20 15:00 Urine Color Dark yellow (YELLOW) 08/15/20 15:00 Urine Appearance Hazy (CLEAR) 08/15/20 15:00 Urine pH 5.0 (5.0 - 8.0) 08/15/20 15:00 Ur Specific [place] 1.030 (1.000-1.030) 08/15/20 15:00 Urine Protein 3+ (NEGATIVE) 08/15/20 15:00 Urine Glucose (UA) Negative (NEGATIVE) 08/15/20 15:00 Urine Ketones Negative (NEGATIVE) 08/15/20 15:00 Urine Occult Blood 5+ (NEGATIVE) 08/15/20 15:00 Urine Nitrite Positive (NEGATIVE) 08/15/20 15:00 Urine Bilirubin Negative (NEGATIVE) 08/15/20 15:00 Urine Urobilinogen Normal (NORMAL) 08/15/20 15:00 Ur Leukocyte Esterase 1+ (NEGATIVE) 08/15/20 15:00 Urine RBC Tntc /HPF (0-3) A 08/15/20 15:00 Urine WBC 5-10 /HPF (0-5) A 08/15/20 15:00 Ur Squamous Epith Cells Few /HPF (NEGATIVE) 08/15/20 15:00 Urine Bacteria 2+ /HPF (NEGATIVE) 08/15/20 15:00 Urine Yeast Moderate /HPF (NEGATIVE) 08/15/20 15:00 Ur Culture Indicated? Yes/culture set up 08/15/20 15:00 SARS-CoV-2 (PCR) Negative (NEGATIVE) 08/15/20 02:30 Influenza Type A (PCR) Negative (NEGATIVE) 08/15/20 02:30 Influenza Type B (PCR) Negative (NEGATIVE) 08/15/20 02:30 RSV (PCR) Negative (NEGATIVE) 08/15/20 02:30 - Plan (1) Chronic obstructive pulmonary disease with acute exacerbation Status: Acute Plan: SUPPLEMENTAL OXYGEN, NORMAL SALINE AT 50 ML/HR, PULMICORT NEBS BID, XOPENEX NEB [place] Q6H, LEVAQUIN 750MG IV DAILY, MORPHINE 1-2MG IV Q4H PRN, SOLU- MEDROL 80MG IV Q8H, ELIQUIS 5MG PO BID, CELEXA 20MG PO DAILY, NORCO 7.5/325MG PO Q6H PRN, SYNTHROID 150MCG PO DAILY, ATIVAN 1MG PO TID PRN, LOPRESSOR 25MG PO DAILY, ULTRAM 50MG PO Q6H PRN, AND THE MAGNESIUM PROTOCOL. (2) Hypoxia Status: Acute (3) Urinary tract infection Status: Acute Qualifiers: Urinary tract infection type: acute cystitis Hematuria presence: with hematuria Qualified Code(s): N30.01 - Acute cystitis with hematuria
[2020-08-20] MEDS: NS 1000 ML 1,000 ML IV SCH ×2 (13:42→18:34)
[2020-08-20] MEDS: RESTORIL CAP 15 MG PO PRN (20:54)
[2020-08-21] MEDS: XOPENEX 1.25 MG/3 ML NEBULE NEB SCH ×2 (00:16→06:14)
[2020-08-21] MEDS: NS 1000 ML 1,000 ML IV SCH (02:00)
[2020-08-21 05:08] LABS: BASOPHILS % (AUTO) 0 % (0.2-1.0); HEMATOCRIT 38.7 % (36.0-47.0); HEMOGLOBIN 12.2 g/dL (12.0-16.0); LYMPHOCYTES # (AUTO) 0.4 X10^3/uL (1.3-2.9); LYMPHOCYTES % (AUTO) 4.1 % (21.0-51.0); MEAN CORPUSCULAR HEMOGLOBIN 28.7 pg (27.0-34.0); MEAN CORPUSCULAR HGB CONC 31.5 g/dL (33.0-35.0); MEAN CORPUSCULAR VOLUME 91.2 fL (80.0-100.0); MONOCYTES # (AUTO) 0.4 x10^3/uL (0.3-0.8); NEUTROPHILS # (AUTO) 9.8 x10^3/uL (2.2-4.8); NEUTROPHILS % (AUTO) 91.9 % (42.0-75.0); PLATELET COUNT 227 X10^3/uL (150.0-450.0); RED BLOOD COUNT 4.24 X10^6/uL (3.5-5.4); WHITE BLOOD COUNT 10.7 X10^3/uL (3.6-10.0)
[2020-08-21 05:23] LABS: PLATELET MORPHOLOGY COMMENT NORMAL (NORMAL)
--- NOTE | 2020-08-21 05:33 | RAD ---
HISTORYSOBSTUDYCHEST, 1 [id number] trachea is midline. The cardiac silhouette is mildly enlarged.. The lungs are clear without focal infiltrate or effusion. Pulmonary vasculature within normal limits. No pneumothorax. The bony thorax is unremarkable.IMPRESSIONMild cardiomegaly.No active cardiopulmonary diseaseElectronically signed by: Gregory Gomes (Aug 21, 2020 05:31:21)
[2020-08-21 05:34] LABS: ALANINE AMINOTRANSFERASE 40 Units/L (12-78); ALBUMIN 2.7 g/dL (3.4-5.0); ALKALINE PHOSPHATASE 90 Units/L (46-116); ASPARTATE AMINO TRANSFERASE 19 Units/L (15-37); BLOOD UREA NITROGEN 21 mg/dL (7-18); CALCIUM 6.3 mg/dL (8.5-10.1); CARBON DIOXIDE 35.8 mmol/L (21-32); CHLORIDE 104 mmol/L (98-107); COR CA(FOR HYPOALB) 7.3 mg/dL (8.5-10.1); COR NA(FOR HYPERGLY) 145 mmol/L (136-145); CREATINE KINASE 332 Units/L (26-192); CREATINE KINASE MB 3.2 ng/mL (0-4.0); CREATININE 0.87 mg/dL (0.55-1.02); SODIUM 144 mmol/L (136-145); TOTAL PROTEIN 5.5 g/dL (6.4-8.2); TROPONIN I < 0.02 ng/mL (0-1.5); eGFR NON BLACK RACES > 60 (>60)
[2020-08-21 05:46] LABS: ABG BASE EXCESS 11.3 mmol/L (-2.0-2.0)
[2020-08-21] MEDS: SOLU-Medrol 125 MG VIAL IVP SCH (06:11)
[2020-08-21] MEDS: SYNTHROID 150 mcg TAB PO SCH (06:11)
[2020-08-21 07:54] VITALS: BP 195/81
[2020-08-21] MEDS: LEVAQUIN PREMIX IV 750 MG 750 MG/150 ML BAG IV SCH (09:16)
[2020-08-21] MEDS: DIFLUCAN 200 MG IV PREMIX* 200 MG/100 ML BAG IV SCH (09:16)
[2020-08-21] MEDS: CELEXA PO SCH (09:17)
[2020-08-21] MEDS: ELIQUIS PO SCH (09:17)
[2020-08-21] MEDS: LOPRESSOR TAB 25 MG PO SCH (09:18)
[2020-08-21] MEDS: PULMICORT NEB TX 0.5 MG NEB SCH (09:47)
[2020-08-21 18:49] LABS: ABG ALLEN TEST POS
[2020-08-21] MEDS ORDERED: COLACE CAP 100 MG PO SCH (21:00)
[2020-08-21] MEDS ORDERED: MILK OF MAGNESIA PO SCH (21:00)
== END 2020-08-21 11:24 | disposition home health service (06) | DRG 191 ==
LOC: MED/SURG 01:06 → ER 01:06 → MED/SURG 08:21
PROVIDERS: ADMIT Internal Medicine; ATTEND Internal Medicine
DX: R94.31 Abnormal electrocardiogram [ECG] [EKG]; J44.1 Chronic obstructive pulmonary disease with (acute) exacerbation; R09.02 Hypoxemia; N30.01 Acute cystitis with hematuria; R06.02 Shortness of breath; Z20.822 Contact with and (suspected) exposure to COVID-19; R26.89 Other abnormalities of gait and mobility; I10 Essential (primary) hypertension